=== PATIENT | female | born 1955 | race Caucasian/White ===

== ENCOUNTER 2017-06-20 22:35 | Inpatient (IN) | payer BC ==
--- OUTSIDE RECORDS SUMMARY | 2017-06-20 22:38 | XMS | Clinical Summary ---
:1955 Author Organization [facility] Address [address] [place] [phone] Phone Care Team Providers Name Role Phone , Primary Care Provider Unavailable Allergies No Known Allergies Current Medications Prescription Sig. Disp. Refills Start Date End Date Status lisinopril Take 20 mg by Active (PRINIVIL,ZESTRIL) 20 MG mouth daily. tablet diltiazem (CARDIZEM CD) Take 240 mg by Active 240 MG 24 hr capsule mouth daily. sertraline (ZOLOFT) 50 MG Take 50 mg by Active tablet mouth daily. simvastatin (ZOCOR) 40 MG Take 40 mg by Active tablet mouth nightly. digoxin (LANOXIN) 0.125 MG Take 125 mcg by Active tablet mouth daily. pantoprazole (PROTONIX) 40 Take 40 mg by Active MG tablet mouth 2 (two) times daily. dabigatran (PRADAXA) 150 Take by mouth 2 Active mg Cap capsule (two) times daily. aspirin 81 MG EC tablet Take 81 mg by Active mouth daily. CALCIUM CARBONATE/VITAMIN Take by mouth 3 Active D3 (CALCIUM 500 + D ORAL) (three) times daily. Active Problems Not on file Social History Tobacco Use Types Packs/Day Years Used Date Former Smoker Smokeless Tobacco: Never Used Comments:QUIT 25 YEARS AGO Alcohol Use Drinks/Week oz/Week Comments No Sex Assigned at Date Recorded Not on file Last Filed Vital Signs Vital Sign Reading Time Taken Blood Pressure 101/52 02/12/2015 3:15 PM CDT Pulse 53 02/12/2015 3:15 PM CDT Temperature 36.4 C (97.6 F) 02/12/2015 3:00 PM CDT Respiratory Rate 18 02/12/2015 3:15 PM CDT Oxygen Saturation 100% 02/12/2015 3:15 PM CDT Inhaled Oxygen Concentration - - Weight 106.7 kg (235 lb 3.7 oz) 02/12/2015 10:41 AM CDT Height 172.7 cm (5' 8") 02/11/2015 8:30 AM CDT Body Mass Index 35.77 02/12/2015 10:41 AM CDT Plan of Treatment Not on file Results Not on filefrom Last 3 Months
[2017-06-20 23:08] LABS: #Basophils 0.1 thou/uL (0.0-0.2); #Eosinphils 0.2 thou/uL (0.0-0.7); #Lymphocytes 2.9 thou/uL (1.20-3.40); #Monocytes 0.6 thou/uL (0.11-0.59); #Neutrophils 4.6 thou/uL (1.40-6.50); %Eosinophils 1.9 % (0.0-10.0); %Lymphocytes 34.3 % (21.0-51.0); %Monocytes 7.7 % (0.0-10.0); Hematocrit 44.9 % (36.0-47.0); Mean Platelet Volume 7.6 fL (7.4-10.4); White Blood Cell (WBC) Count 8.3 thou/uL (4.8-10.8)
[2017-06-20 23:27] LABS: ALT (SGPT) 24 U/L (8-55); AST (SGOT) 30 U/L (5-34); Alkaline Phosphatase 123 U/L (40-150); Anion Gap 17 mmol/L (10-20); BUN (Urea Nitrogen) 23 mg/dL (9.8-20.1); Bilirubin, Total 0.3 mg/dL (0.2-1.2); Calc. Creatinine Clearance 0 mL/min (70-130); Calcium 9.6 mg/dL (7.8-10.44); Carbon Dioxide 23 mmol/L (22-29); Chloride 106 mmol/L (98-107); Estimated GFR-MDRD 67; Globulin 4.5 g/dL (2.4-3.5); Magnesium 2.5 mg/dL (1.6-2.6); Protein, Total 8.9 g/dL (6.0-8.3)
[2017-06-20 23:31] LABS: Troponin I Less than 0.010 ng/mL (< 0.028)
--- NOTE | 2017-06-21 00:01 | RAD ---
PORTABLE UPRIGHT CHEST ONE VIEW: 06/20/17 HISTORY: 61-year-old female with shakiness and heart racing since 8:30 tonight. Chest pain. Heart size is upper range of motion. Bronchovascular markings are slightly prominent. Postop midline sternotomy. Left ICD. No confluent pneumonia, overt edema, or pleural effusion. Stable from 11/18/16. IMPRESSION: Borderline heart size and increased bronchovascular markings, stable. No pneumonia, acute edema or o ther acute process. Stable from prior study. POS: TIESHA
[2017-06-21] MEDS ORDERED: Amiodarone HCl 450 MG, Admixture Fee 1 EACH in Dextrose 5% in Water 250 ML IVPB SCH ×3 (00:30)
[2017-06-21 02:07] VITALS: BMI 44.9
[2017-06-21] MEDS ORDERED: Acetaminophen 325 MG TAB PO PRN (04:15)
[2017-06-21] MEDS ORDERED: Digoxin 0.5 MG/2 ML AMP SLOW IVP SCH (04:15)
[2017-06-21] MEDS ORDERED: Melatonin 3 MG TAB PO PRN (04:45)
[2017-06-21] MEDS: Sodium Chloride 0.9% 1,000 ML IV SCH (05:15)
--- NOTE | 2017-06-21 05:39 | HP ---
REASON FOR ADMISSION: Atrial fibrillation with RVR. HISTORY OF PRESENT ILLNESS: The patient gives history of sitting in a chair watching TV yesterday evening when she started to have palpitations. 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 Her rate was around 120-130 at home. The patient finally made it to the emergency room. She has had prior history of atrial fibrillation with RVR and had ablation done. The patient also has a pacemaker. She was taken off amiodarone at the end of May by her drying machine tender. She was also off digoxin 6 months prior to that. The patient was having paced rhythm all through and was only having paroxysmal atrial fibrillation, hence the digoxin and amiodarone were taken off per patient. PAST MEDICAL AND SURGICAL HISTORY: History of chronic atrial fibrillation, dyslipidemia, hypertension, obesity, coronary artery disease, history of gastric sleeve done in 2012 with nearly 90-pound weight loss and subsequently has gained some back, pacemaker for history of Drtqc-Gqphmotta-Cwryi syndrome, history of asthma, prior history of gallstone pancreatitis with cholecystectomy , hematuria, anxiety, depression, chronic anemia, gastroesophageal reflux disease, left knee arthroscopic repair, right breast biopsy which has come back for benign, history of ERCP done in [place]. CURRENT MEDICATIONS: Pradaxa 150 mg p.o. twice daily, simvastatin 40 mg p.o. at bedtime, aspirin 81 mg p.o. daily, iron 325 mg p.o. daily, Cardizem-CD 240 mg p.o. daily, Claritin 10 mg p.o. daily. ALLERGIES: No known drug allergies. PERSONAL HISTORY: Does not abuse alcohol or drugs. No history of smoking. FAMILY HISTORY: Mother is healthy and is 83 years old now. Father at the age of 84 years. He has had history of CVA and dementia. Power of real estate attorney is her . CODE STATUS: Full: REVIEW OF SYSTEMS: The following complete review of systems was negative, unless otherwise mentioned in the HPI or below: Constitutional: Weight loss or gain, ability to conduct usual activities. Skin: Rash, itching. Eyes: Double vision, pain. ENT/Mouth: Nose bleeding, neck stiffness, pain, tenderness. Cardiovascular: Palpitations, dyspnea on exertion, orthopnea. Respiratory: Shortness of breath, wheezing, cough, hemoptysis, fever or night sweats. Gastrointestinal: Poor appetite, abdominal pain, heartburn, nausea, vomiting, constipation, or diarrhea. Genitourinary: Urgency, frequency, dysuria, nocturia. Musculoskeletal: Pain, swelling. Neurologic/Psychiatric: Anxiety, depression. Allergy/Immunologic: Skin rash, bleeding tendency. PHYSICAL EXAMINATION: GENERAL: The patient is a 61-year-old female who is currently not in any acute distress. VITAL SIGNS: Blood pressure 130/66, pulse 120 per minute, respiratory rate is 18 per minute, temperature 97.8 degrees Fahrenheit, saturating 93% on room air. NECK: Supple, no elevated JVD. HEENT: Eyes; extraocular muscles intact. Pupils reacting to light. Oral cavity, mucous membranes are moist. No exudates or congestion. CARDIOVASCULAR: S1, S2 heard. Irregular rhythm. RESPIRATORY: Air entry 1+ bilateral. Scattered rhonchi plus no rales or wheezes. ABDOMEN: Soft, bowel sounds heard. No tenderness, rigidity or guarding. EXTREMITIES: No peripheral edema or calf tenderness. VASCULAR SYSTEM: Peripheral pulses 1+ bilateral. No ischemic ulcerations or gangrene. CENTRAL NERVOUS SYSTEM: No gross focal deficits seen. Patient is alert, awake , oriented x3. PSYCHIATRIC: The patient's mood is euthymic. No hallucinations or delusions. LABORATORY AND X-RAY FINDINGS: White count of 8, H\T\H 14 and 44, platelet count 209 with 55% neutrophils. Electrolytes are stable. BUN 23, creatinine 0.8. Liver enzymes are within normal limits. First set of cardiac enzymes are negative. Albumin is 4.4. Chest x-ray done shows mild cardiomegaly, no acute infiltrate. EKG done shows atrial fibrillation with RVR at 130 beats per minute. There are Q-waves seen in V1, V2, V3. CLINICAL IMPRESSION AND PLAN: The patient will be admitted to telemetry for atrial fibrillation with rapid ventricular response. The ER physician spoke to Dr. Worthy overnight and was told to start her on amiodarone drip after a bolus. She is currently on a drip. Her heart rate is still around 120 per minute. We will give a dose of 0.5 mg digoxin one dose IV. Cardiology consultation and Electrophysiology consultation will also be requested. We will continue her on aspirin, Pradaxa, Cardizem-CD as before. We will also continue her ferrous sulfate, melatonin and Zoloft as before. She will be on normal saline at 50 mL per hour. We will obtain an echo with 2D Doppler to rule out vegetation. We will keep her n.p.o. with the patient likely requiring ablation or cardioversion if she continues with the current heart rate. PETERD
[2017-06-21 05:46] LABS: Troponin I 0.013 ng/mL (< 0.028)
[2017-06-21] MEDS ORDERED: FLU VACC QS2017-18 36 mo. & older 0.5 ML SYRINGE IM ONE ×2 (09:00→10:00)
[2017-06-21] MEDS: Dabigatran 150 mg Capsule PO SCH ×2 (09:14→20:44)
[2017-06-21] MEDS: Ferrous Gluconate 324 MG TAB PO SCH (09:14)
--- NOTE | 2017-06-21 13:58 | CON ---
DATE OF CONSULTATION: 06/21/2017 HISTORY: Keri Andrade is a 61-year-old white female who is admitted with atrial fibrillation. She has a long history of cardiac arrhythmias. In 1989, she underwent an open chest procedure for ablation of Jjejd-Pqxxpsntp-Vrmwr when percutaneous attempt failed. She has had atrial fibrillation as well as a permanent pacemaker placement. She has undergone 2 atrial fibrillation ablations. In 12/2016, she underwent electrocardioversion for atrial fibrillation, which had recurred after the second ablation. She has continued to remain out of atrial fibrillation. Approximately 2 weeks ago, her amiodarone was discontinued. Then, last night at 8:30 p.m., she felt her heart beating very rapidly and came to the emergency room and was found to be in atrial fibrillation. She was given a bolus followed by intravenous amiodarone. She continued to remain in atrial fibrillation; however, her rate is now in the 90s. With this, she denies any chest discomfort, shortness of breath, lightheadedness, dizziness or diaphoresis. PAST MEDICAL HISTORY: History of coronary artery disease with PTCA of totally occluded right posterior descending in 05/2004. Since then, she has undergone repeat catheterization last of which was in 01/2011. She was found to have diffuse distal LAD disease. Apparently, her right coronary artery looked normal at that time. History of Cljcy-Gtkulrlku-Qzwwv, morbid obesity, atrial fibrillation, hyperlipidemia, hypertension, history of gallstone pancreatitis, anxiety and GERD. OPERATIONS: Include open Ydjji-Adgwmjejm-Kgfmq ablation, atrial fibrillation ablation x2, pacemaker placement, cholecystectomy, left knee arthroscopy, gastric sleeve surgery with weight loss of 90-100 pounds, breast biopsy, and ERCP. MEDICATIONS: Zoloft 100 daily, Claritin 10 daily, melatonin 5 mg at bedtime, Fergon 324 daily, aspirin 81 daily, Pradaxa 150 mg b.i.d., Cartia 240 mg daily, Lasix 40 daily p.r.n., nitroglycerin 0.4 p.r.n., simvastatin 40 at bedtime and Protonix 40 q.a.m. ALLERGIES: None. SOCIAL HISTORY: She smoked in the past, but not recently. She does not drink. She works for [employer] as a nurse. FAMILY HISTORY: Father had coronary artery disease. REVIEW OF SYSTEMS: Ten point review of systems otherwise unremarkable. PHYSICAL EXAMINATION: VITAL SIGNS: Blood pressure 113/58, pulse of 75 irregularly irregular. HEENT: PERRL. NECK: Supple. CHEST: Clear. CARDIAC: S1 and S2 are normal, without any S3, S4 or murmurs. ABDOMEN: Obese, normal bowel sounds, no tenderness. EXTREMITIES: Revealed no clubbing, cyanosis or edema. NEUROLOGIC: Grossly intact. SKIN: Warm and dry. IMAGING AND LABORATORY DATA: EKG reveals atrial fibrillation with fast ventricular response of 130 per minute. There is downsloping of ST segments in I, aVL and V6. CBC is unremarkable. Sodium 142, potassium 4.3, chloride 106, carbon dioxide 23, BUN 23, creatinine 0.86. Cardiac enzymes are unremarkable. IMPRESSION: 1. Persistent atrial fibrillation with recurrence approximately 2 weeks after stopping the amiodarone. She has undergone radiofrequency ablation x2 for atrial fibrillation and also underwent electrical cardioversion in March,. 2. History of Tctzr-Xdaznbpwz-Dsqdp with open ablation in 1989. 3. Coronary artery disease, status post percutaneous transluminal coronary angioplasty of the right posterior descending. Most recent catheterization showed distal left anterior descending diffuse disease. 4. Status post pacemaker placement. 5. Hypertension. 6. Hypercholesterolemia. 7. Morbid obesity, status post gastric sleeve. RECOMMENDATIONS: [employer] has been contacted in regards to interrogating her pacemaker. The main options would be to reload her with amiodarone, undergo repeat electrocardioversion, consider another agent such as Multaq, which does not have the bad long-term side effects and then cardioversion or consideration of a third atrial fibrillation ablation. The patient will be seen by Electrophysiology for further discussion. PRASANNA
[2017-06-21] MEDS ORDERED: Amiodarone HCl 450 MG, Admixture Fee 1 EACH in Dextrose 5% in Water 250 ML IVPB PRN ×3 (15:45)
--- NOTE | 2017-06-21 15:55 | PDOC.PN ---
- Subjective Encounter Start Date: 06/21/17 Encounter Start Time: 15:50 Subjective: f/u for recurrent A-fib with RVR on Amiodarone gtt and evaluated by EP -: for CV but cancelled with plans on ablation in am. - Objective Resuscitation Status: Resuscitation Status FULL:Full Resuscitation MAR Reviewed: Yes Vital Signs & Weight: Vital Signs (12 hours) Temp Pulse Resp BP BP Pulse Ox 06/21/17 12:08 98.2 F 71 16 106/59 L 95 06/21/17 09:14 75 113/58 L 06/21/17 08:43 97.7 F 75 16 113/58 L 95 06/21/17 05:16 117 H 06/21/17 04:15 98.1 F 118 H 18 113/52 L 92 L Weight Weight 295 lb 3.2 oz I&O: 06/20/17 06/21/17 06/22/17 06:59 06:59 06:59 Intake Total 355 Balance 355 Result Diagrams: 06/20/17 22:52 06/20/17 22:52 Additional Labs: Laboratory Tests 06/20/17 06/20/17 06/21/17 22:52 22:52 02:00 Troponin I Less than 0.010 0.010 B-Natriuretic Peptide 51.8 06/21/17 04:17 Troponin I 0.013 B-Natriuretic Peptide EKG Reviewed by me: Yes (Tele - A-fib with intermittent pacing in 70's) Phys Exam - Physical Examination Constitutional: NAD HEENT: PERRLA, oral pharynx no lesions Neck: no JVD, supple Respiratory: no wheezing, clear to auscultation bilateral Cardiovascular: irregular Gastrointestinal: soft, non-tender, no distention, positive bowel sounds Musculoskeletal: pulses present Neurological: normal sensation, moves all 4 limbs Psychiatric: A&O x 3 Skin: normal turgor, cap refill <2 seconds Dx/Plan (1) Persistent atrial fibrillation with rapid ventricular response Code(s): I48.1 - PERSISTENT ATRIAL FIBRILLATION Status: Acute Comment: Plan for 3rd ablation 06/22, continue Pradaxa, off Amiodarone gtt, continue Cardizem 240mg daily (2) Heart palpitations Code(s): R00.2 - PALPITATIONS Status: Acute (3) CAD (coronary artery disease) Code(s): I25.10 - ATHSCL HEART DISEASE OF [place] CORONARY ARTERY W/O ANG PCTRS Status: Chronic Comment: Stable, continue ASA and Lipitor (4) Zzoqa-Bzngnbugd-Fnfjy (WPW) pattern Code(s): I45.6 - PRE-EXCITATION SYNDROME Status: Resolved Comment: Hx of prior WPW tx with open ablation (5) HLD (hyperlipidemia) Code(s): E78.5 - HYPERLIPIDEMIA, UNSPECIFIED Status: Chronic Comment: Continue Lipitor - Plan plan discussed w/ family, out of bed/ambulate, DVT proph w/SCDs Stable currently -: Continue rate-control measures with Cardizem -: Plan for repeat ablation in am -: Continue Pradaxa -: Continue ASA and Lipitor * 2D echo pending * AM lab: BMP, CBC
[2017-06-21] MEDS ORDERED: ISOVUE-370 76%-LOCM 1 ML ONE (16:28)
--- NOTE | 2017-06-21 17:31 | CT ---
CT PULMONARY ANGIOGRAM WITH IV CONTRAST AND 3D POSTPROCESSING: Date: 06/21/17 HISTORY: Patient is scheduled to have an ablation tomorrow. FINDINGS: The pulmonary arterial vasculature is well opacified without filling defects to suggest pulmonary em bolism. The thoracic aorta demonstrates no evidence of aneurysmal dilatation. No pleural or pericard ial effusions are seen. No pneumothoraces, focal areas of consolidation, or lung masses are identifi ed. There is a 5.0 mm nodule in the lingula. There are degenerative changes in the spine. There are postop changes of bariatric surgery and cholecystectomy in the upper abdomen. There is a 14.0 mm rig ht adrenal nodule with attenuation values consistent with a benign adenoma. IMPRESSION: 1. No CT evidence of pulmonary embolism. 2. Indeterminate 5.0 mm left lung nodule in the lingula. A 6 month follow-up CT scan of the chest s hould be performed. 3. Right adrenal adenoma. CODE T. POS: OFF
[2017-06-21] MEDS: Ferrous Sulfate 325 MG TAB PO SCH (17:56)
[2017-06-21] MEDS ORDERED: Sodium Chloride 0.9% 0 ML ONE (19:47)
--- NOTE | 2017-06-21 20:29 | CON ---
DATE OF CONSULTATION: 06/21/2017 ELECTROPHYSIOLOGY CONSULTATION REPORT REFERRING PHYSICIAN: Dr. Kidd. I am seeing Mrs. Andrade at our [facility] telemetry floor as an electrophysiology consult ant for the following problems: 1. Recurrent atrial arrhythmias. A. History of remote WPW/accessory pathway ablation in the past. B. Persistent atrial fibrillation, prompting pulmonary venous isolation procedure, 01/29/2016, and a redo procedure, 12/12/2016. C. Transient amiodarone use, stopped a couple of weeks ago. D. Now with recurrent atypical atrial flutter which persists. 2. History of coronary artery disease. A. History of PTCA for total occluded right posterior descending artery in 05/2004. B. Last left heart catheterization in 01/2011 showed diffuse distal LAD disease, but patent RCA. C. Normal LVEF noted. 4. Coronary artery risk factors. A. Hypertension. B. Hyperlipidemia. C. Morbid obesity. 5. Chronic oral anticoagulation, on Pradaxa. 6. Sick sinus syndrome, prompting a pacemaker implantation with a [employer]tr[employer] Advisa device on 2014. A. Low amplitude P waves are noted. ALLERGIES: None. MEDICATIONS: At home include Zoloft 100 mg a day, Claritin 10 mg a day, melatonin 5 mg at bedtime, Fergon daily, aspirin 81 mg daily, Pradaxa 150 mg twice a day, Cartia 240 mg daily, Lasix 40 mg p.r. n., nitroglycerin 0.4 mg, simvastatin 40 mg at bedtime, Protonix 40 mg in the morning. SUBJECTIVE: Mrs. Andrade is here with symptoms of recurrent palpitations. She started feeling thi s about at 8:30 p.m., heavy heart beating, and eventually came to the ER and found to be back in atr ial fibrillation. She was given IV amiodarone and heart rates are improved, but continues in atrial fibrillation. She has no stroke-like symptoms, no neurological deficits, no fever, chills, or coug h. No PND or orthopnea noted. She denies any stroke-like symptoms or bleeding issues. She has no angina. REVIEW OF SYSTEMS: Rest of 12-point review of systems otherwise unremarkable. PAST MEDICAL HISTORY: As above. PAST SURGICAL HISTORY: Significant for open heart/chest procedure for ablation of the Radha-Jefry on-White tachycardia. Also, pacemaker placement as above. SOCIAL HISTORY: She smoked in the past, but not recently. She denies ETOH or drug use. FAMILY HISTORY: Not contributory, but father had coronary artery disease. OBJECTIVE DATA: VITAL SIGNS: Blood pressure this morning is 113/58, heart rate 75, respirations 16, temperature 97. 7 degrees Fahrenheit. GENERAL: She is alert and oriented woman in no apparent distress. NECK: Supple. Jugular veins are not distended. CHEST: Coarse without crackles. CARDIAC: Heart sounds are irregularly irregular. S1 and S2 variable. No murmur or gallop noted. ABDOMEN: Benign. Bowel sounds positive. EXTREMITIES: Lower extremities without edema, clubbing, or cyanosis. DATABASE: The EKGs reviewed reveals a very irregular tachyarrhythmia, likely atypical atrial flutte r with 2:1 conduction is noted. Subsequent EKGs, telemetry strips reveal intermittent wide complex conduction, possibly ventricular pacing is seen. LABORATORY DATA: White count is 8.3, hemoglobin 14.3, platelet count is 209. Sodium 142, potassium 4.3, BUN 23, creatinine 0.86, AST and ALT 30 and 24. Pacemaker interrogation was reviewed from today, reveals Medtronic Advisa DR dual chamber pacemaker battery longevity will be about 4-6 years estimated. Lead impedances are normal at 418 ohms in both leads, sensing 1.3 millivolts in right atrium and 4.4 millivolts in the right ventricle. Capture t hresholds are 1 volt at 0.4 msec in the right ventricle, not checked due to atrial fibrillation in t he right atrium. The atrial fibrillation charts reveal persisting atrial fibrillation before February, but mostly sinus rhythm subsequent to that with intermittent recurrences, but currently there is an episode ongoing as well. ASSESSMENT AND PLAN: Mrs. Andrade is a 61-year-old woman, who has a history of Prlga-Yhiydvyfi-Sqg te syndrome, which was ablated with an open heart surgery as per history. She did have two endocard ial ablations for pulmonary venous isolation and left atrial ablation, most recently on 12/12/2016. She was maintaining sinus rhythm on amiodarone, but it was discontinued due to lack of recurrent ar rhythmias and in fear of potential long-term side effects. Now, she is back in atrial fibrillation/ flutter and she has required IV amiodarone loading. Her rates are now better controlled. Our plan is at this point, for now, we discussed treatment and options. Continuing IV amiodarone wi th cardioversion is one of the options. Alternatively, we could consider redo pulmonary venous isol ation procedure and left atrial ablation procedure. Risks and benefits of both were discussed. We will proceed with the left atrial ablation procedure at her wishes. For now, we will cancel the car dioversion. I will stop the IV amiodarone, which will be restarted if necessary for heart rate cont rol. We are holding the Pradaxa tomorrow morning, but we will continue to monitor her for rate cont rol on telemetry. CT scan will be obtained of the left atrium. Thank you again for allowing me to participate in the care of this patient.
[2017-06-21] MEDS: Atorvastatin Calcium 20 MG TAB PO SCH (20:45)
[2017-06-22] MEDS: Sodium Chloride 0.9% 1,000 ML IV SCH ×2 (02:10→20:24)
[2017-06-22 05:39] LABS: #Eosinphils 0.1 thou/uL (0.0-0.7); #Monocytes 0.5 thou/uL (0.11-0.59); #Neutrophils 2.3 thou/uL (1.40-6.50); %Basophils 0.9 % (0.0-1.0); %Eosinophils 2.9 % (0.0-10.0); %Lymphocytes 39.5 % (21.0-51.0); %Monocytes 9.6 % (0.0-10.0); Hematocrit 41.6 % (36.0-47.0); Mean Platelet Volume 7.5 fL (7.4-10.4); Red Blood Cell (RBC) Count 4.29 mill/uL (4.20-5.40)
[2017-06-22 05:53] LABS: Anion Gap 10 mmol/L (10-20); BUN (Urea Nitrogen) 12 mg/dL (9.8-20.1); Calc. Creatinine Clearance 141 mL/min (70-130); Calcium 9.5 mg/dL (7.8-10.44); Carbon Dioxide 29 mmol/L (22-29); Chloride 106 mmol/L (98-107); Estimated GFR-MDRD 64
[2017-06-22] MEDS: Ferrous Gluconate 324 MG TAB PO SCH (08:03)
--- NOTE | 2017-06-22 11:51 | PDOC.PN ---
- Subjective Encounter Start Date: 06/22/17 Encounter Start Time: 08:00 Pt seen for followup re: atrial fibrillation. Denies chest pain, shortness of breath, fevers or chills. - Objective Resuscitation Status: Resuscitation Status FULL:Full Resuscitation Vital Signs & Weight: Vital Signs (12 hours) Temp Pulse Resp BP Pulse Ox 06/22/17 11:18 97.6 F 86 16 116/60 97 06/22/17 08:03 97.6 F 73 16 96 06/22/17 08:00 97.6 F 73 16 109/78 96 06/22/17 04:00 97.5 F L 75 20 119/60 96 06/22/17 00:00 97.9 F 72 18 106/66 92 L Weight Weight 296 lb 9.6 oz I&O: 06/21/17 06/22/17 06/23/17 06:59 06:59 06:59 Intake Total 355 1341 Output Total 1150 Balance 355 191 Result Diagrams: 06/22/17 05:27 06/22/17 05:27 Phys Exam - Physical Examination Morbid obesity HEENT: moist MMs, oral pharynx no lesions Neck: supple Respiratory: no wheezing, no rales, no rhonchi, clear to auscultation bilateral Cardiovascular: RRR, no rub Gastrointestinal: soft, positive bowel sounds Musculoskeletal: pulses present Neurological: moves all 4 limbs Psychiatric: normal affect, A&O x 3 Skin: no rash, normal turgor, cap refill <2 seconds Dx/Plan (1) Atrial fibrillation Code(s): I48.91 - UNSPECIFIED ATRIAL FIBRILLATION Status: Acute (2) CAD (coronary artery disease) Code(s): I25.10 - ATHSCL HEART DISEASE OF [place] CORONARY ARTERY W/O ANG PCTRS Status: Chronic (3) HLD (hyperlipidemia) Code(s): E78.5 - HYPERLIPIDEMIA, UNSPECIFIED Status: Chronic (4) Morbid (severe) obesity due to excess calories Code(s): E66.01 - MORBID (SEVERE) OBESITY DUE TO EXCESS CALORIES Status: Chronic - Plan * . Continue statin, amiodarone. Pt awaiting ablation. Review of Systems - Review of Systems Constitutional: Other. negative: Fever, Chills, Sweats, Weakness, Malaise Respiratory: negative: Cough, Dry, Shortness of Breath, Hemoptysis, SOB with Excertion, Pleuritic Pain, Sputum, Wheezing Cardiovascular: negative: Chest Pain, Palpitations, Orthopnea, Paroxysmal Noc. Dyspnea, Edema, Light Headedness Gastrointestinal: Other. negative: Nausea, Vomiting, Abdominal Pain, Diarrhea, Constipation, Melena, Hematochezia Genitourinary: negative: Dysuria, Frequency, Incontinence, Hematuria, Retention - Medications/Allergies Allergies/Adverse Reactions: Allergies Allergy/AdvReac Type Severity Reaction Status Date / Time No Known Allergies Allergy Verified 06/21/17 02:24 Medications: Current Medications Acetaminophen (Tylenol) 650 mg PO Q4H PRN PRN Reason: Headache/Fever or Pain Aspirin (Aspirin Chewable) 81 mg PO DAILY [facility] Last Admin: 06/22/17 08:03 Dose: 81 mg Atorvastatin Calcium (Lipitor) 20 mg PO HS [facility] Last Admin: 06/21/17 20:45 Dose: 20 mg Diltiazem HCl (Cardizem Cd) 240 mg PO DAILY [facility] Last Admin: 06/22/17 08:03 Dose: 240 mg Ferrous Gluconate (Fergon) 324 mg PO QAM-[facility] Last Admin: 06/22/17 08:03 Dose: Not Given Ferrous Sulfate (Feosol) 325 mg PO QPM-[facility] Last Admin: 06/21/17 17:56 Dose: 325 mg Sodium Chloride (Normal Saline 0.9%) 1,000 mls @ 50 mls/hr IV .Q20H [facility] Last Admin: 06/22/17 02:10 Dose: Not Given Amiodarone HCl 450 mg/Miscellaneous Medication 1 each/ Dextrose/Water 259 mls @ 0 mls/hr IVPB INF PRN; Protocol; As Directed PRN Reason: HR >120 Melatonin (Melatonin) 6 mg PO HS PRN PRN Reason: Insomnia Pantoprazole Sodium (Protonix) 40 mg PO QAM [facility] Last Admin: 06/22/17 08:03 Dose: 40 mg Sertraline HCl (Zoloft) 100 mg PO DAILY [facility] Last Admin: 06/22/17 08:03 Dose: 100 mg
[2017-06-22] MEDS ORDERED: Heparin 10,000 UNITS/1 ML VIAL ONE ×2 (13:16→15:10)
[2017-06-22] MEDS ORDERED: Phenylephrine 10 MG/NS 250 ML 250 ML ONE (13:18)
[2017-06-22] MEDS ORDERED: PHENYLEPHRINE-NS 100 MCG/ML 10 ML SYRINGE ONE (13:35)
[2017-06-22] MEDS ORDERED: Propofol 200 MG/20 ML VIAL ONE (13:35)
[2017-06-22] MEDS ORDERED: Lidocaine 2% PF 10 ML AMP (For Epidural Use) ONE (13:35)
[2017-06-22] MEDS ORDERED: Isoproterenol 0.2 MG/1 ML AMP ONE ×2 (15:10)
[2017-06-22] MEDS ORDERED: Protamine Sulfate 50 MG/5 ML VIAL ONE (15:25)
[2017-06-22] MEDS ORDERED: Ondansetron HCl/PF 4 MG/2 ML Vial IVP PRN ×2 (17:19→19:06)
[2017-06-22] MEDS ORDERED: Promethazine HCl 25 MG/ML VIAL IM PRN (17:19)
[2017-06-22] MEDS ORDERED: Promethazine HCl 25 MG/ML VIAL SLOW IVP PRN (17:19)
[2017-06-22] MEDS: Ferrous Sulfate 325 MG TAB PO SCH (18:06)
[2017-06-22] MEDS ORDERED: Bisacodyl 10 MG SUPP PR PRN (19:06)
[2017-06-22] MEDS ORDERED: traMADol HCl 50 MG TAB PO PRN (19:06)
[2017-06-22] MEDS ORDERED: Silver Sulfadiazine 1% Cream 50 GM JAR TOP PRN (19:06)
[2017-06-22] MEDS ORDERED: Bisacodyl 5 MG TAB PO PRN (19:06)
[2017-06-22] MEDS ORDERED: diphenhydrAMINE HCl 25 MG CAP PO PRN (19:06)
[2017-06-22] MEDS ORDERED: Temazepam 15 MG CAP PO PRN (19:06)
[2017-06-22] MEDS ORDERED: Mag-Al 1200 mg/1200 mg/30 ML UDCUP PO PRN (19:06)
[2017-06-22] MEDS ORDERED: Nitroglycerin 0.4 MG TAB (25 Tab Bottle) SL PRN (19:06)
[2017-06-22] MEDS: Atorvastatin Calcium 20 MG TAB PO SCH (20:21)
[2017-06-22] MEDS: Acetaminophen 325 MG TAB PO PRN (20:21)
[2017-06-22] MEDS: Dabigatran 150 mg Capsule PO SCH (20:21)
--- NOTE | 2017-06-22 21:02 | PRG ---
ELECTROPHYSIOLOGY FOLLOWUP NOTE DATE OF SERVICE: 06/22/2017 REFERRING PHYSICIAN: River Kidd M.D. SUBJECTIVE: Ms. Andrade is doing well today. She continues to have minor palpitations, but feelin g reasonably well. OBJECTIVE: VITAL SIGNS: Blood pressure is 116/60, heart rate 86, respirations 16 and temperature 97.6 degrees Fahrenheit. GENERAL: This is an alert and oriented woman in no apparent distress with elevated BMI. NECK: Supple. Jugular veins not distended. CHEST: Coarse without crackles. CARDIOVASCULAR: Heart sounds are regular to rate and rhythm. No murmur or gallop. ABDOMEN: Benign. Bowel sounds are positive. EXTREMITIES: Lower extremities without edema, clubbing or cyanosis. LABORATORY DATA: White count is 5, hemoglobin 13.1 and platelet count 162. Sodium 141, potassium 4 .5, BUN 12 and creatinine 0.9. ASSESSMENT AND PLAN: 1. Ms. Andrade is a pleasant 61-year-old female with prior history of persistent atrial fibrillati on with repeat left atrial ablation procedures. She received the IV amiodarone for rate control, bu t still in atrial fibrillation. As we discussed yesterday, we plan to proceed with the left atrial ablation procedure. Risks and benefits were detailed to the patient again. She understands and alayna ling to proceed. We will perform it today. 2. Chronic pacemaker with suboptimal right atrial sensing parameters. Consider revision. 3. Anticoagulation. Pradaxa on hold today for the ablation procedure, resume at the later time.
--- NOTE | 2017-06-22 21:22 | OP ---
DATE OF PROCEDURE: 06/22/2017 PROCEDURES: 1. Comprehensive EP testing with and without left atrial pacing and recording. 2. Transseptal catheterization x2. 3. Intracardiac echocardiography. 4. 3D mapping and ablation of atrial fibrillation. CLINICAL INDICATION: Recurrent atrial arrhythmias despite previous ablation for atrial fibrillation . DAILY RELEASE AND DUPE PRINTER: Brett Marquez M.D. ASA CLASSIFICATION: 3. ANESTHESIA: General endotracheal anesthesia per Anesthesiology. ADDITIONAL CARDIAC MEDICATIONS: Isoproterenol 10 mcg per minute infusion. Total heparin given 17,0 00 units. Total protamine given 40 mg. ACUTE COMPLICATIONS: None apparent. TOTAL RADIOFREQUENCY TIME: 13.3 minutes. TOTAL FLUOROSCOPY TIME: Zero. METHODS: After informed consent was obtained, the patient was taken to the EP lab in the [facility]. Both groins were prepped and draped using ultrasound guidance. The right and left femoral vei ns were accessed and wires were inserted into the central venous system. These were used to place a n11 Bermudian and 8 Bermudian sheath in the left groin, and two 8 B[place]udian sheath in the right groin. All 8 B[place]udian sheaths were then replaced by long sheaths for catheter stability. An intracardiac echo pro be was placed in left groin, advanced up to the right atrium and the right ventricle for imaging. A 3D map was obtained to the right atrium and coronary sinus using a circular and ablation catheter. A CS catheter was then placed into the coronary sinus. The proximal end was along the delicia termi nalis. Transseptal catheterization was performed after heparinization. This involves 12,000 units of heparin followed by 3D map and ICE guidance to obtain transseptal catheterization twice. Once ac ross, a 3D map was obtained at the left atrium, all veins appeared to be isolated from the previous ablation. Posterior wall was not completely isolated and was re-isolated. The circular catheter wa s then placed into the left atrial appendage and the fastest activation was along the roof the left atrium. The lateral mitral isthmus appeared electrically silent from previous ablations. Ablation was then delivered along the roof of left atrium which completely isolated this area, terminated the arrhythmia and also rendered the appendage completely electrically silent. Of note all provocation s both from pacing and chemical standpoint failed to induce any significant arrhythmias. Catheter w as then withdrawn and removed. Based on echo, the right atrial pacemaker lead dislodged during the course of the procedure. The previous sensing parameters of the leads were very poor even prior to the procedure, so this did not change the overall plan to revise the lead at some point. Catheter w as then withdrawn. Sheaths were pulled and hemostasis was achieved with suture closure. RESULTS: 1. Baseline intervals, HV interval 65 milliseconds. The patient was in atrial fibrillation with th e most rapid atrial signals along the roof of left atrium. This was ablated as described in method section. 2. Ablation details, a total of 13.3 minutes were delivered with an open irrigation and Storybird ablation catheter. All lesions were in the left atrium. This did result in complete isolatio n of left atrial appendage. IMPRESSION: 1. Successful isolation of the roof the left atrium and appendage of left atrium which rendered the patient noninducible and terminated arrhythmias. 2. Evidence of a baseline poor right atrial lead position and parameters and incidental dislodgemen t of this lead during the course of the ablation of the left atrium. RECOMMENDATION: Proceed with right atrial lead reposition or replacement.
[2017-06-23] MEDS: Acetaminophen 325 MG TAB PO PRN (02:33)
[2017-06-23] MEDS: Ferrous Gluconate 324 MG TAB PO SCH (09:08)
[2017-06-23] MEDS: Dabigatran 150 mg Capsule PO SCH (09:09)
[2017-06-23] MEDS ORDERED: Cephalexin 250 MG CAP PO SCH ×2 (12:30→18:00)
--- NOTE | 2017-06-23 13:02 | DIS ---
DATE OF ADMISSION: 06/21/2017 DATE OF DISCHARGE: 06/23/2017 PRIMARY CARE PROVIDER: Minna López M.D. ADMITTING DIAGNOSES: 1. Persistent atrial fibrillation. 2. Intracardiac echocardiography, 3D mapping and ablation of atrial fibrillation on 06/22/2017. 3. Right atrial lead repositioning following ablation of the left atrium. CONDITION OF PATIENT AT THE TIME OF DISCHARGE: Stable. I assess Ms. Andrade on the day of dischar . She denies any chest pain or shortness of breath. PHYSICAL EXAMINATION: VITAL SIGNS: Stable. CARDIOVASCULAR: S1 and S2 are heard, regular. LUNGS: Clear to auscultation bilaterally. DISCHARGE MEDICATIONS: Keflex 500 mg 4 times a day for 1 week as prescribed by Electrophysiology Se rvice, Tylenol Extra Strength p.r.n., aspirin 81 mg daily, Pradaxa 150 mg 2 times a day, Cartia XT 2 40 mg daily, Fergon 324 mg daily, Lasix 40 mg as directed, Claritin 10 mg daily, melatonin 5 mg at b edtime as needed, nitroglycerin p.r.n., Protonix 40 mg daily, Zoloft 100 mg daily, Zocor 40 mg at be dtime, and silver sulfadiazine 50 grams 1 gram topically every 12 hours as needed. HOSPITAL COURSE: Ms. Andrade is a pleasant 61-year-old lady who was admitted to [facility] on 06/21/2017 for persistent atrial fibrillation, which continued after she was star jermaine on amiodarone drip. She was seen by Cardiology Service and by Electrophysiology Service. She h ad a CT angiogram of the chest on 06/21/2017, which did not reveal any CT evidence of pulmonary embo lism. She had an indeterminate 5 mm left lung nodule in the lingula. The radiologist recommended a 6-month followup CT scan of the chest. She also had a right adrenal adenoma. In terms of atrial fibrillation, she had ablation on 06/22/2017. This was followed by right atrial lead repositioning because of evidence of baseline poor right atrial lead position and parameter and incidentally dislodgement of that lead during the course of ablation of the left atrium. Ms. Andrade continued to do well clinically, and is being discharged home in a stable condition. In terms of laboratory investigations, on 06/22/2017, she had white count of 5000, hemoglobin 13.1, platelet count 162,000. Normal electrolytes and normal creatinine of 0.90. Many thanks for allowing me to participate in your patient's care. Please feel free to contact me w ith any questions or concerns. DISCHARGE DESTINATION: Home. TOTAL AMOUNT OF TIME SPENT COORDINATING THIS DISCHARGE: 33 minutes. CONSULTATIONS DURING THIS HOSPITALIZATION: Cardiology, Dr. Mattson and Electrophysiology, Dr. Solano .
[2017-06-23] MEDS: Sodium Chloride 0.9% 1,000 ML IV SCH (15:50)
[2017-06-23 17:23] VITALS: BP 110/50; TEMP 98
--- NOTE | 2017-06-23 17:55 | PRG ---
DATE OF SERVICE: 06/23/2017 SUBJECTIVE: Ms. Andrade seems to be doing well after her left atrial ablation and right atrial pac ing lead revision one day prior. OBJECTIVE DATA: VITAL SIGNS: Blood pressure is 109/55, heart rate 70, respirations 16, temperature 98.3 degrees Fah renheit. GENERAL: Alert and oriented woman in no apparent distress. NECK: Supple. Jugular veins not distended. CHEST: Coarse without crackles. Left precordial pacemaker site wound edges approximated without si gnificant hematoma. ABDOMEN: Benign, bowel sounds positive. EXTREMITIES: Lower extremities without edema, clubbing, or cyanosis. DATABASE: The telemetry strips reviewed revealing sinus rhythm, atrial paced rhythm. Interrogation of her pacemaker reveals a Medtronic Advisa dual-chamber pacemaker, battery voltage is 2.99 volts. Capture threshold 0.75 volts at 0.4 milliseconds in the atrium, 0.75 volts at 0.4 mill iseconds in the right ventricle, sensing is 1 millivolts in the right atrium and 2.4 millivolts in t he right ventricle, lead impedances are 361 and 399 ohms respectively. CONCLUSION: 1. functioning dual-chamber pacemaker one day post right atrial lead revision. 2. History of atypical atrial flutter, status post ablation, currently stable. 3. Chronic anticoagulation with Pradaxa, now resumed. PLAN: Discharge when primary team is ready, routine followup in our office for wound check in [address] [place] [id number].
--- NOTE | 2017-06-25 17:48 | EKG ---
Test Reason : Blood Pressure : / mmHG Vent. Rate : 070 BPM Atrial Rate : 056 BPM P-R Int : 000 ms QRS Dur : 156 ms QT Int : 460 ms P-R-T Axes : 000 -28 107 degrees QTc Int : 496 ms AV sequential or dual chamber electronic pacemaker When compared with ECG of 22-JUN-2017 20:03, (Unconfirmed) No significant change was found Confirmed by KURTIS COLLINS ([id number]) on 06/25/2017 5:48:23 PM Referred By: [facility] Confirmed By:KURTIS COLLINS
--- NOTE | 2017-06-25 17:51 | EKG ---
Test Reason : POST ABLATION Blood Pressure : / mmHG Vent. Rate : 070 BPM Atrial Rate : 069 BPM P-R Int : 000 ms QRS Dur : 160 ms QT Int : 464 ms P-R-T Axes : 000 -45 118 degrees QTc Int : 501 ms AV sequential or dual chamber electronic pacemaker When compared with ECG of 20-JUN-2017 22:46, (Unconfirmed) Previous ECG has undetermined rhythm, needs review Confirmed by KURTIS COLLINS ([id number]) on 06/25/2017 5:51:21 PM Referred By: JAKE Confirmed By:KURTIS COLLINS
== END 2017-06-23 17:23 | disposition home or self-care (01) | DRG 274 ==
LOC: ERS 22:35 → 2NO 06-21 00:11
PROVIDERS: ADMIT Internal Medicine; ATTEND Internal Medicine
PROC: 02583ZZ Destruction of Conduction Mechanism, Percutaneous Approach (ICD-10-PCS; principal; 2017-06-22)
PROC: 02K83ZZ Map Conduction Mechanism, Percutaneous Approach (ICD-10-PCS; 2017-06-22)
PROC: 02PA3MZ Removal of Cardiac Lead from Heart, Percutaneous Approach (ICD-10-PCS; 2017-06-22)
PROC: 02H63JZ Insertion of Pacemaker Lead into Right Atrium, Percutaneous Approach (ICD-10-PCS; 2017-06-22)
DX: I48.1 Persistent atrial fibrillation (principal); I49.5 Sick sinus syndrome; T82.128A Displacement of other cardiac electronic device, initial encounter; Z68.42 Body mass index [BMI] 45.0-49.9, adult; I10 Essential (primary) hypertension; Z79.01 Long term (current) use of anticoagulants; D64.9 Anemia, unspecified; R91.1 Solitary pulmonary nodule; D35.01 Benign neoplasm of right adrenal gland; Z95.0 Presence of cardiac pacemaker; Z90.3 Acquired absence of stomach [part of]; Z90.49 Acquired absence of other specified parts of digestive tract; Z95.5 Presence of coronary angioplasty implant and graft; E78.5 Hyperlipidemia, unspecified; E66.01 Morbid (severe) obesity due to excess calories; Z87.891 Personal history of nicotine dependence; I25.2 Old myocardial infarction; I25.10 Atherosclerotic heart disease of native coronary artery without angina pectoris
CPT/HCPCS: 33206; 36005; 36415; 71010; 71275; 75820; 76942; 80048; 80053; 82553; 83735; 83880; 84484; 85025; 85347; 93005; 93010; 93306; 93613; 93623; 93656; 93662; 96365; 96375; 96376; A4216; C1731; C1732; C1759; C1769; C1898; J0282; J1160; J1644; J2001; J2704; J2720; J3490; J7070

== ENCOUNTER 2017-07-24 07:56 | Day surgery (SDC) | payer BC ==
[2017-07-21 08:50] VITALS: BMI 45.6
--- OUTSIDE RECORDS SUMMARY | 2017-07-24 07:59 | XMS | Clinical Summary ---
:1955 Author Organization [facility] Address [address] [place] [id number] Phone Care Team Providers Name Role Phone [...]
[2017-07-24] MEDS ORDERED: CEFAZOLIN/Water 2 GM/20 ML SYRINGE ONE (09:43)
[2017-07-24 09:46] LABS: PTT 23.9 SEC (22.9-36.1)
[2017-07-24 09:50] LABS: Prothrombin Time 13.5 SEC (12.0-14.7)
[2017-07-24] MEDS ORDERED: Propofol 500 MG/50 ML VIAL ONE ×3 (10:13→11:00)
[2017-07-24] MEDS ORDERED: Propofol 200 MG/20 ML VIAL ONE (10:18)
--- NOTE | 2017-07-24 16:00 | RAD ---
ONE VIEW CHEST: Comparison: 06-20-17 History: Evaluate lead position. FINDINGS: Single view chest demonstrates a left sided transvenous pacemaker with lead positioned in the region of the right atrium and possibly coronary sinus. Two view chest radiograph would be beneficial. Sternotomy wires are normal. Normal cardiac silhouette. The pulmonary vessels are slightly prominent. No consolidation or mass. No pneumothorax or osseous abnormality. IMPRESSION: 1. Left sided transvenous pacemaker with leads positioned possibly over the region of the right atriu m and coronary sinus. Correlate clinically. Two view chest radiograph is recommended. 2. Cardiomegaly. 3. Mild pulmonary vascular prominence. Code T POS: [facility]
== END 2017-07-24 13:30 | disposition home or self-care (01) ==
LOC: CCL 07:56
PROVIDERS: ATTEND Internal Medicine Cardiovascular Disease
PROC: 02WA0MZ Revision of Cardiac Lead in Heart, Open Approach (ICD-10-PCS; principal; 2017-07-24)
DX: T82.120A Displacement of cardiac electrode, initial encounter (principal); I49.5 Sick sinus syndrome; E66.9 Obesity, unspecified; I10 Essential (primary) hypertension; I25.10 Atherosclerotic heart disease of native coronary artery without angina pectoris; E78.5 Hyperlipidemia, unspecified; I25.2 Old myocardial infarction; F32.9 Major depressive disorder, single episode, unspecified; Z68.42 Body mass index [BMI] 45.0-49.9, adult; Z79.01 Long term (current) use of anticoagulants; Z79.82 Long term (current) use of aspirin; Z79.899 Other long term (current) drug therapy; Z98.84 Bariatric surgery status; Z95.0 Presence of cardiac pacemaker; Z95.1 Presence of aortocoronary bypass graft; Z90.49 Acquired absence of other specified parts of digestive tract; Z98.890 Other specified postprocedural states; Z87.891 Personal history of nicotine dependence; Z86.79 Personal history of other diseases of the circulatory system
CPT/HCPCS: 33215; 36005; 71010; 75820; 85610; 85730; J2704; J3490

== ENCOUNTER 2017-08-17 11:15 | Day surgery (SDC) | payer BC ==
[2017-08-08 16:42] VITALS: BMI 45.6
[2017-08-17 12:56] LABS: #Basophils 0.1 thou/uL (0.0-0.2); #Eosinphils 0.2 thou/uL (0.0-0.7); #Lymphocytes 2.2 thou/uL (1.20-3.40); #Monocytes 0.6 thou/uL (0.11-0.59); %Eosinophils 2.8 % (0.0-10.0); %Lymphocytes 30.8 % (21.0-51.0); %Monocytes 8.3 % (0.0-10.0); Hematocrit 45.4 % (36.0-47.0); Mean Platelet Volume 7.2 fL (7.4-10.4); Red Blood Cell (RBC) Count 4.68 mill/uL (4.20-5.40)
[2017-08-17 13:12] LABS: PTT 30.3 SEC (22.9-36.1)
[2017-08-17 13:17] LABS: ALT (SGPT) 22 U/L (8-55); AST (SGOT) 24 U/L (5-34); Alkaline Phosphatase 101 U/L (40-150); Anion Gap 13 mmol/L (10-20); BUN (Urea Nitrogen) 23 mg/dL (9.8-20.1); Bilirubin, Total 0.9 mg/dL (0.2-1.2); Calc. Creatinine Clearance 131 mL/min (70-130); Calcium 9.9 mg/dL (7.8-10.44); Carbon Dioxide 32 mmol/L (22-29); Chloride 100 mmol/L (98-107); Estimated GFR-MDRD 58; Globulin 4.1 g/dL (2.4-3.5); Protein, Total 8.4 g/dL (6.0-8.3)
[2017-08-17] MEDS ORDERED: Diprivan 20 ML ONE (14:14)
[2017-08-17] MEDS ORDERED: Propofol 200 MG/20 ML VIAL ONE (15:49)
--- NOTE | 2017-08-18 06:29 | OP ---
DATE OF SERVICE: 08/17/2017 CARDIOVERSION REPORT REFERRING PHYSICIAN: Dr. Scott Espinoza. REASON FOR PROCEDURE: Mr. Andrade has recurrent atrial arrhythmias, redo ablation on 10/23/2016, al so the dual chamber pacemaker implantation in 06/2015, but the lead revision was necessary of the atr ial lead in 06/2017 and 07/2017. He is back on anticoagulation with Pradaxa without interruption. I also started on Multaq for attempted anabaptist of sinus rhythm. PROCEDURE: The patient received propofol per Anesthesia specialist. After adequate level of sedatio n achieved, a synchronized 100 joule shock converted the patient back for only 4 beat or so. Followi ng that, a repeat cardioversion was performed under sedation. A 200 joule shock which was unsuccessf ul, but eventually 300 joule shock again converted back him for only one beat and atrial flutter and fibrillation recurred. Pacemaker was interrogated, pre and post-procedure appears to be adequate function. Atrial sensing. CONCLUSION: Unsuccessful cardioversion. PLAN: Likely we will stop Multaq and continue rate control. Consider amiodarone at earlier time. R epeat cardioversion as well could be considered after adequate amiodarone level was achieved. Longer term re-ablation procedure also a consideration.
== END 2017-08-17 15:27 | disposition home or self-care (01) ==
LOC: CCL 11:15
PROVIDERS: ATTEND Internal Medicine Cardiovascular Disease
DX: I48.92 Unspecified atrial flutter (principal); I25.10 Atherosclerotic heart disease of native coronary artery without angina pectoris; I45.6 Pre-excitation syndrome; I10 Essential (primary) hypertension; E78.5 Hyperlipidemia, unspecified; E66.9 Obesity, unspecified; Z68.42 Body mass index [BMI] 45.0-49.9, adult; Z79.01 Long term (current) use of anticoagulants; Z79.82 Long term (current) use of aspirin; Z79.899 Other long term (current) drug therapy; Z95.0 Presence of cardiac pacemaker; Z98.890 Other specified postprocedural states
CPT/HCPCS: 36415; 80053; 85025; 85610; 85730; 92960; J2704

== ENCOUNTER 2017-11-01 15:53 | Outpatient (CLI) | payer BC | END 2017-11-01 15:54 | disposition home or self-care (01) | LOC: BICMAMMO 15:53 | PROVIDERS: ATTEND Internal Medicine | DX: Z12.31 Encounter for screening mammogram for malignant neoplasm of breast (principal); Z80.3 Family history of malignant neoplasm of breast | CPT/HCPCS: 77063; 77067 ==

== ENCOUNTER → 2018-04-09 | Day surgery (SDC) | payer BC ==
[2018-04-06 15:50] VITALS: BMI 50.1
[~2018-04-09] MED LIST: PROPOFOL 20 ML ONE; PROPOFOL 200 MG/20 ML VIAL ONE
--- NOTE | 2018-04-09 11:17 | CT ---
NONCONTRAST CT THORAX: DATE: 04/09/18. HISTORY: Followup cyst adjacent to diaphragm. Six-month followup evaluation. FINDINGS: A dual-lead left subclavian cardiac pacemaking device remains in place. Postsurgical changes related to median sternotomy are present. A left atrial appendage occlusion device is now noted in place. The heart remains enlarged. No pericardial effusion is appreciated. Minimal vascular calcifications are seen in the aortic arch. There is mention of a pulmonary nodule in the lingula on the prior study on 06/21/17. This area on ax ial imaging on today's exam appears much less nodular in appearance and on the prior coronal reformat jermaine images had a more linear appearance. This is probably related to an area of either atelectasis o r mild scarring. There is evidence of bibasilar atelectasis. Lungs are otherwise clear. Previously described right adrenal nodule is again present. Post-cholecystectomy changes are noted w ith a small amount of pneumobilia again seen in the left hepatic lobe. Postsurgical changes of the stomach are again present. IMPRESSION: 1. Previously described nodular density in the region of the lingula has a different appearance on t mari's examination and is most likely attributable to a focal area of scarring or atelectasis. [facility], one additional followup can be performed in 6 months for further evalu ation. No additional discrete pulmonary nodule or mass is seen. 2. Cardiomegaly with interval placement of a left atrial appendage occlusion device since the prior study. 3. Stable right adrenal adenoma. POS: [facility]
--- NOTE | 2018-04-10 09:28 | DIS ---
DATE OF PROCEDURE: 04/09/2018 INDICATION FOR PROCEDURE: This is a 62-year-old female with a history of ablation of atrial fibrilla tion, also a Watchman device placement. She was advised to undergo a transesophageal echocardiogram, this to determine whether or not the Watchman device is well seated in the left atrial appendage and to see if there were any leaks. She was taken to the recovery area short acting propofol, the transesophageal probe was easily passed down the distal esophagus. This did show unfortunately evid ence of a device leak. The device appears not to be well seated. There is actually what appears to be blood behind the device and it was very apex of the atrial appendage, but this does not appear to be clot. She tolerated the procedure well without any difficulties or complications. ADMITTING DIAGNOSES: Include history of atrial fibrillation, history of ablation of the atrial fibri llation, history of Watchman device placement. She also has a history of coronary disease and hypert ension. DISCHARGE DIAGNOSES: Include history of atrial fibrillation, history of ablation of the atrial fibri llation, history of Watchman device placement. She also has a history of coronary disease and hypert ension. PROCEDURE: Transesophageal echocardiogram. DISCHARGE MEDICATIONS: Will be same as her admission medications. These include Tylenol, ProAir, El iquis 5 mg b.i.d., aspirin 81 mg a day, vitamin D3, Cartia XT 240 mg daily, Lasix 40 mg daily, lorata dine 10 mg daily, melatonin 5 mg at bedtime, nitroglycerin p.r.n. as needed. Her followup will be with the travel trailer components assembler as per their schedule. Also, please note her other medicines include potassium, sertraline and Zocor 40 mg daily. She will follow up with me in the ne xt 1-2 months. HOSPITAL COURSE: This is a very pleasant 62-year-old female with history of coronary artery disease, atrial fibrillation who has undergone ablation of the atrial fibrillation, recently within the last 2 months had a Watchman device placed. She was advised to undergo a transesophageal echocardiogram f or placement of the device. This was performed today without difficulties or complications. Unfortu nately appears to have a leak around the device and also appears not to be well seated. I will defer this back to the Electrophysiology with the films and also report to see whether or not further inte rvention will be indicated. She tolerated the procedure well and once she is stable and alert, she w ill be able to be discharged home.
== END ==
LOC: CCL 07:39
PROVIDERS: ATTEND Internal Medicine Cardiovascular Disease
PROC: B24BZZ4 Ultrasonography of Heart with Aorta, Transesophageal (ICD-10-PCS; principal; 2018-04-09)
DX: I48.1 Persistent atrial fibrillation (principal); T82.538A Leakage of other cardiac and vascular devices and implants, initial encounter; I35.1 Nonrheumatic aortic (valve) insufficiency; I07.1 Rheumatic tricuspid insufficiency; I45.6 Pre-excitation syndrome; F32.9 Major depressive disorder, single episode, unspecified; E78.5 Hyperlipidemia, unspecified; I10 Essential (primary) hypertension; I25.10 Atherosclerotic heart disease of native coronary artery without angina pectoris; Z79.01 Long term (current) use of anticoagulants; Z79.899 Other long term (current) drug therapy; Z95.0 Presence of cardiac pacemaker; Z98.890 Other specified postprocedural states
CPT/HCPCS: 71250; 93312; J2704

== ENCOUNTER 2018-08-17 06:12 | Day surgery (SDC) | payer BC ==
[2018-08-16 11:55] VITALS: BMI 48.6
[2018-08-17 07:36] LABS: INR-International Normal Ratio 1.2; PTT 26.8 SEC (22.9-36.1); Prothrombin Time 15.1 SEC (12.0-14.7)
[2018-08-17 07:43] LABS: #Eosinphils 0.1 thou/uL (0.0-0.7); #Lymphocytes 1.2 thou/uL (1.20-3.40); #Monocytes 0.4 thou/uL (0.11-0.59); #Neutrophils 1.8 thou/uL (1.40-6.50); %Basophils 0.7 % (0.0-1.0); %Eosinophils 2.5 % (0.0-10.0); %Lymphocytes 34.1 % (21.0-51.0); %Neutrophils 50.7 % (42.0-75.0); Mean Corpuscular HGB CONC 32.3 g/dL (32.0-36.0); Mean Corpuscular Volume 89.7 fL (78.0-98.0); Mean Platelet Volume 7.7 fL (7.4-10.4); Platelet Count 183 thou/uL (130-400); RBC Distribution Width 13.7 % (11.5-14.5); Red Blood Cell (RBC) Count 4.13 mill/uL (4.20-5.40); White Blood Cell (WBC) Count 3.6 thou/uL (4.8-10.8)
[2018-08-17] MEDS ORDERED: Lidocaine 1% PF 5 ML VIAL ONE ×2 (07:45→11:00)
[2018-08-17] MEDS ORDERED: PROPOFOL 40 ML ONE (07:45)
[2018-08-17 07:51] LABS: Anion Gap 12 mmol/L (10-20); BUN (Urea Nitrogen) 22 mg/dL (9.8-20.1); Calc. Creatinine Clearance 174 mL/min (70-130); Calcium 9.6 mg/dL (7.8-10.44); Carbon Dioxide 30 mmol/L (23-31); Chloride 101 mmol/L (98-107); Estimated GFR-MDRD 75; Glucose 91 mg/dL (80-115); Potassium 3.8 mmol/L (3.5-5.1); Sodium 139 mmol/L (136-145)
[2018-08-17] MEDS ORDERED: PROPOFOL 200 MG/20 ML VIAL ONE (11:00)
--- NOTE | 2018-08-17 22:41 | EKG ---
Test Reason : PREOP YAMEL Blood Pressure : / mmHG Vent. Rate : 070 BPM Atrial Rate : 300 BPM P-R Int : 000 ms QRS Dur : 112 ms QT Int : 446 ms P-R-T Axes : 000 008 103 degrees QTc Int : 481 ms Electronic atrial pacemaker Abnormal ECG When compared with ECG of 23-JUN-2017 07:31, Electronic atrial pacemaker has replaced Electronic ventricular pacemaker Confirmed by ANNA GAMBOA, DR. Daly ([id number]) on 08/17/2018 10:41:20 PM Referred By: BLANCA Confirmed By:DR. Malika CASTILLO MD
--- NOTE | 2018-08-18 03:33 | DIS ---
DATE OF ADMISSION: 08/17/2018 DATE OF DISCHARGE: 08/17/2018 ADMITTING DIAGNOSES: She was admitted. She was seen in the outpatient facility to undergo a transesophageal echocardiogram, this was a planned procedure. Due to a previously placed Watchman device for her atrial fibrillation, she was scheduled to undergo a transesophageal echocardiogram to rule out cecilio-device leak in order to stop taking her oral anticoagulation, the Eliquis. Her other diagnoses include history of atrial fibrillation, history of ablations. She has history of coronary artery disease. She has had history of [id number]-[id number]. She has history of cholecystomy, right knee surgery, and laparoscopy. She has had a pacemaker insertion. She has obesity and anxiety. DISCHARGE DIAGNOSES: She was admitted. She was seen in the outpatient facility to undergo a transesophageal echocardiogram, this is the planned procedure. Due to a previously placed Watchman device for her atrial fibrillation, she was scheduled to undergo transesophageal echocardiogram to rule out cecilio-device leak in order to stop taking her oral anticoagulation, the Eliquis. Her other diagnoses include history of atrial fibrillation, history of ablations. She has history of coronary artery disease. She has had history of [id number]. She has history of cholecystomy, right knee surgery, and laparoscopy. She has had a pacemaker insertion. She has obesity and anxiety. PROCEDURE PERFORMED: Include transesophageal echocardiogram. FOLLOWUP: Will be with dixonac operator as per the schedule. She will also see me back in the office in next 1 to 2 months. HOSPITAL COURSE: She was admitted to undergo an transesophageal echocardiogram, which was performed today without difficulty or complications. There does not appear to be any significant cecilio-device leak. There may be a very small leak on the lateral wall. The device seems to be protruding more into the left atrium, where the left atrial appendage appears to be occluded. She also was found to have moderate mitral valve regurgitation and [id number] tricuspid valve regurgitation and also mild aortic valve regurgitation with moderate valve sclerosis. Her left ventricular systolic function appears to be stable with ejection fraction of 50% to 55%. She remains stable to be discharged to home and we will see her back in the office. We will discuss her case with dixonac operator as to whether or not she can stop taking her Eliquis. Job ID: [id number]
--- NOTE | 2018-08-18 15:49 | ECHO ---
DATE OF PROCEDURE: 08/17/18 INDICATION FOR PROCEDURE: 62-year-old female who is status post a Watchman device due to atrial fibrillation. She was advised t o undergo a transesophageal cardiogram to determine whether or not there is a peridevice leak and see whether or not she could possibly stop taking her oral anticoagulation. She was taken to the Recovery area where she underwent short acting Propofol. The transesophageal pro be was easily passed down the distal esophagus and impressions are as follows: 1. Normal left ventricular systolic function. Ejection fracture estimated at 50-55%. 2. Moderate mitral valve regurgitation. 3. Moderate to severe tricuspid valve regurgitation. 4. No evidence of patent foramen ovale or atrial septal defect. 5. Mild aortic valve regurgitation. 6. Mild aortic valve sclerosis. 7. Normal functioning Watchman device and left atrial appendage. This does protrude into the left at rium. There is a very slight area around the device which may be considered a small leak. I do not se e anything inferior or retrograde around the device itself. We will ask electrophysiology to reevalu ate these images. It appears at this time that there is no significant peridevice leak. She tolerated the procedure well without difficulties or complications.
== END 2018-08-17 09:09 | disposition home or self-care (01) ==
LOC: CCL 06:12
PROVIDERS: ATTEND Internal Medicine Cardiovascular Disease
DX: Z48.812 Encounter for surgical aftercare following surgery on the circulatory system (principal); I48.91 Unspecified atrial fibrillation; Z79.82 Long term (current) use of aspirin; Z79.899 Other long term (current) drug therapy; Z95.818 Presence of other cardiac implants and grafts
CPT/HCPCS: 80048; 85025; 85610; 85730; 93005; 93010; 93312; J2001; J2704

== ENCOUNTER 2018-11-08 15:51 | Outpatient (CLI) | payer BC | END 2018-11-08 15:52 | disposition home or self-care (01) | LOC: BICMAMMO 15:51 | PROVIDERS: ATTEND Internal Medicine | DX: Z12.31 Encounter for screening mammogram for malignant neoplasm of breast (principal); R92.1 Mammographic calcification found on diagnostic imaging of breast; Z80.3 Family history of malignant neoplasm of breast | CPT/HCPCS: 77063; 77067 ==

== ENCOUNTER 2019-01-31 22:52 | Observation (INO) | payer BC ==
--- NOTE | 2019-01-31 23:12 | RAD ---
Frontal radiograph chest 01/31/2019 COMPARISON: 07/24/2017 HISTORY: Chest pain FINDINGS: Stable prominence of the cardiac silhouette. Mild pulmonary vascular congestion. Stable mid line sternotomy wires and transvenous pacing device. IMPRESSION: Mild pulmonary vascular congestion with no focal consolidation or alveolar edema.
[2019-01-31] MEDS ORDERED: Nitroglycerin 0.4 MG TAB 1 EACH ONE (23:27)
[2019-01-31 23:30] LABS: #Eosinphils 0.1 thou/uL (0.0-0.7); #Lymphocytes 2.2 thou/uL (1.20-3.40); #Monocytes 0.7 thou/uL (0.11-0.59); #Neutrophils 4.2 thou/uL (1.40-6.50); %Basophils 0.6 % (0.0-1.0); %Eosinophils 1.6 % (0.0-10.0); %Lymphocytes 30.3 % (21.0-51.0); %Monocytes 9.8 % (0.0-10.0); %Neutrophils 57.7 % (42.0-75.0); Hemoglobin 11.6 g/dL (12.0-16.0); Mean Corpuscular HGB CONC 32.8 g/dL (32.0-36.0); Mean Corpuscular Volume 88.3 fL (78.0-98.0); Mean Platelet Volume 7.5 fL (7.4-10.4); Platelet Count 198 thou/uL (130-400); Red Blood Cell (RBC) Count 4.01 mill/uL (4.20-5.40); White Blood Cell (WBC) Count 7.4 thou/uL (4.8-10.8)
[2019-01-31 23:52] LABS: ALT (SGPT) 19 U/L (8-55); AST (SGOT) 24 U/L (5-34); Albumin 4.5 g/dL (3.4-4.8); Alkaline Phosphatase 119 U/L (40-150); Anion Gap 17 mmol/L (10-20); BUN (Urea Nitrogen) 16 mg/dL (9.8-20.1); Bilirubin, Total 0.7 mg/dL (0.2-1.2); CK (CPK) 114 U/L (29-168); Calc. Creatinine Clearance 0 mL/min (70-130); Calcium 9.7 mg/dL (7.8-10.44); Carbon Dioxide 28 mmol/L (23-31); Chloride 99 mmol/L (98-107); Estimated GFR-MDRD 75; Globulin 3.8 g/dL (2.4-3.5); Glucose 94 mg/dL (80-115); Lipase 24 U/L (8-78); Potassium 3.7 mmol/L (3.5-5.1); Protein, Total 8.3 g/dL (6.0-8.3); Sodium 140 mmol/L (136-145)
[2019-02-01] MEDS ORDERED: Acetaminophen 325 MG TAB PO PRN (02:20)
[2019-02-01] MEDS ORDERED: Nitroglycerin 0.4 MG TAB 1 EACH SL PRN (02:21)
[2019-02-01 03:20] LABS: Troponin I Less than 0.010 ng/mL (< 0.028)
--- NOTE | 2019-02-01 03:55 | HP ---
CHIEF COMPLAINT: Chest pain. HISTORY OF PRESENT ILLNESS: The patient is a very pleasant 63-year-old female with past medical history of CAD, hypertension, who presents to the hospital with complaints of chest pain and the patient also has a history of atrial fibrillation, who comes to the hospital for chest pain. The patient stated that she was packing for her weekend getaway when she started having a burning sensation to her left side chest wall area radiating to her left shoulder. The patient stated she also felt very weak and started having shortness of breath on exertion. The patient denies any orthopnea or PND. She denies any recent shortness of breath on exertion except for today. The patient stated that she took nitroglycerin x1 and 4 baby aspirin and she brought herself to the ER. The patient in the ER was given another additional nitroglycerin and felt her burning sensation to her chest was relieved. PAST MEDICAL HISTORY: As of the followin. CAD. 2. Atrial fibrillation, status post ablation. She has Rnhvz-Fbwbtsjrm-Dpyqr syndrome. 3. Hypertension. 4. Hyperlipidemia. ALLERGIES: SHE HAS NONE. MEDICATIONS: As of the followin. The patient is on aspirin 81 mg daily. 2. She is on Eliquis 2.5 b.i.d. 3. Lasix 40 mg daily. 4. Sertraline 100 mg daily. 5. Simvastatin 40 mg at bedtime. I have asked the patient to bring an updated list since this is not the most updated list. PAST SURGICAL HISTORY: The patient has a history of multiple ablation. She had an open-heart to get an ablation for Xfaqz-Mcqtneapl-Vyaec syndrome. Also, she has had a cholecystectomy and she has had a right-sided breast biopsy, which was benign. She has also had a left knee arthroscopic repair and an ERCP that was done in [place]. SOCIAL HISTORY: She does not drink. She is a former smoker. No drug use. She is a full code. Lives with her . REVIEW OF SYSTEMS: All negative except for the ones mentioned above in the HPI. PHYSICAL EXAMINATION: VITAL SIGNS: Temperature of 98.0, heart rate of 80, blood pressure of 115/60, respirations are 18, and 98% on room air. GENERAL: She is awake, alert, and oriented x3. Does not appear in distress. HEENT: Normocephalic, atraumatic. No lymphadenopathy noted. Pupils are equal and reactive to light. CV: S1 and S2 present. No murmurs, rubs, or gallops. Regular rhythm. LUNGS: Clear to auscultation. No rhonchi or wheezes noted. ABDOMEN: Obese. Bowel sounds are present x2. No pain upon palpation. EXTREMITIES: Mild +1 pitting edema. She does have chronic venous stasis changes to the lower extremity. NEUROVASCULAR: No focal deficits noted. PSYCHIATRIC: The patient's mood is euthymic. No hallucinations or delusions noted. LABORATORY RESULTS: As of the following: WBCs of 7.4, hemoglobin of 11.6, hematocrit of 35.4, platelets of 198. Chemistry: Sodium of 140, potassium of 3.7, BUN of 16, creatinine 0.78. BNP of 137.5. Her EKG initially had some ST depressions in V4, V5, V6; however, on repeat after the nitroglycerin, they were back to her baseline. This was a little new compared to her prior EKG in 2017. The patient did have a positive D-dimer, for which she did have a CTA, the results are pending. ASSESSMENT AND PLAN: The patient is a very pleasant 63-year-old female, who presents to the hospital with complaints of chest pain. 1. Chest pain, most likely secondary to coronary artery disease. The patient has a history of small vessel disease. Her last echocardiogram was in 2018, which indicated an EF of 50% to 55% with moderate to severe tricuspid regurgitation. Her troponin x1 is negative. Given her changes in the EKG, which was subtle, however, significant and her EKG was back to the baseline, I will go ahead and consult Cardiology, may just require a stress test; however, given her risk factors, I will go ahead and consult Cardiology. Continue to monitor. Keep her n.p.o. just in case if the patient requires a stress test. 2. Atrial fibrillation. She has had a history of Wemmw-Twwsqxusq-Fbpsd syndrome, status post ablation. Currently, she is in sinus. We will continue to monitor. 3. Hypertension. We will continue her home medications. 4. Deep venous thrombosis prophylaxis. I believe she is already on Eliquis; if not, I will put her on some Lovenox. Job ID: [id number]
[2019-02-01 06:23] LABS: Troponin I Less than 0.010 ng/mL (< 0.028)
--- NOTE | 2019-02-01 08:59 | CT ---
PRELIMINARY REPORT/[facility]/EMERGENCY AFTER HOURS PROCEDURE: EXAM: CT Angiography Chest With Contrast EXAM DATE/TIME: 02/01/2019 12:30 AM CLINICAL HISTORY: 63 years old, female; Signs and symptoms; Dyspnea and shortness of breath; Prior surgery; Patient HX: Er1; , 63 y/o F presents to ED C/O sudden onset of cp that began this evening while PT was packing. She notes some associated dyspnea on exertion, that she began experiencing this afternoon prior to onset of cp. No n/v, diaphoresis, worsening of chronic edema, abd pain. Denies rec ent fever, cough, diarrhea. PT with h/o mi in 2003 with associated cardiac arrest, afib, wpw, x 4 car diac ablations TECHNIQUE: Imaging protocol: Axial computed tomographic angiography images of the chest with intravenous contras t using CT angiography protocol. 3D rendering: MIP reconstructed images were created and reviewed. COMPARISON: No relevant prior studies available. FINDINGS: Tubes, catheters and devices: Left atrial appendage occlusion device in place. Left subclavian transv enous pacemaker leads in the right cardiac chambers. Pulmonary arteries: No pulmonary emboli. Aorta: Normal. No aortic aneurysm. No aortic dissection. 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 Lungs: Normal. No consolidation. No masses. Pleural space: Normal. No pneumothorax. No pleural effusion. Heart: Mild four-chamber cardiac enlargement. Adrenals: 13 mm right adrenal adenoma. Stomach and bowel: Changes of prior gastric sleeve procedure. Lymph nodes: Unremarkable. No enlarged lymph nodes. Bones/joints: Multilevel thoracic spine degenerative changes. Subacute/healing fractures of the left lateral third through fifth ribs. Soft tissues: Unremarkable. IMPRESSION: No pulmonary emboli. Thank you for allowing us to participate in the care of your patient. Dictated and Authenticated by: Prosper Melissa MD 02/01/2019 1:10 AM Central Time ([place] & [place]) FINAL REPORT CTA ANGIO CHEST: I agree with the preliminary report provided. No acute central or segmental pulmonary embolus is mine dent. POS:
[2019-02-01] MEDS ORDERED: Loratadine 10 MG TAB PO SCH (09:00)
[2019-02-01] MEDS ORDERED: Aspirin Chewable 81 MG TAB PO SCH (09:00)
[2019-02-01] MEDS ORDERED: Apixaban 2.5 MG TAB PO SCH (09:00)
[2019-02-01 09:08] LABS: #Eosinphils 0.1 thou/uL (0.0-0.7); #Lymphocytes 1.1 thou/uL (1.20-3.40); #Monocytes 0.4 thou/uL (0.11-0.59); #Neutrophils 2.1 thou/uL (1.40-6.50); %Lymphocytes 30.4 % (21.0-51.0); %Monocytes 10.6 % (0.0-10.0); Hemoglobin 10.8 g/dL (12.0-16.0); Mean Corpuscular HGB CONC 32.9 g/dL (32.0-36.0); Mean Corpuscular Hemoglobin 29.4 pg (27.0-31.0); Mean Corpuscular Volume 89.3 fL (78.0-98.0); Mean Platelet Volume 7.5 fL (7.4-10.4); Platelet Count 158 thou/uL (130-400); Red Blood Cell (RBC) Count 3.68 mill/uL (4.20-5.40); White Blood Cell (WBC) Count 3.7 thou/uL (4.8-10.8)
[2019-02-01 09:29] LABS: Anion Gap 11 mmol/L (10-20); BUN (Urea Nitrogen) 14 mg/dL (9.8-20.1); Calc. Creatinine Clearance 185 mL/min (70-130); Calcium 9.7 mg/dL (7.8-10.44); Carbon Dioxide 33 mmol/L (23-31); Cardiac Risk 2.8 (Less than 4.5); Chloride 100 mmol/L (98-107); Cholesterol 207 mg/dl (< 200 Desired); Estimated GFR-MDRD 78; Glucose 95 mg/dL (80-115); HDL Cholesterol 73 mg/dL (>60 Neg Risk); LDL Cholesterol, Calculated 116 mg/dL; Magnesium 2.6 mg/dL (1.6-2.6); Potassium 3.8 mmol/L (3.5-5.1); Sodium 140 mmol/L (136-145); Triglycerides 91 mg/dL (Less than 150)
[2019-02-01] MEDS ORDERED: Regadenoson 0.4 MG/5 ML SYRINGE ONE (09:57)
[2019-02-01] MEDS ORDERED: ISOVUE-370 76%-LOCM 1 ML ONE (10:56)
--- NOTE | 2019-02-01 12:46 | NM ---
Stress only myocardial perfusion examination: 02/01/2019 HISTORY: Chest pain TECHNIQUE: SPECT imaging of the left ventricular myocardium obtained during stress following the admi nistration of 33 mCi technetium 99m labeled sestamibi FINDINGS: Left ventricular wall motion appears normal. No perfusion defect is noted on SPECT imaging. Left ventricular ejection fraction is estimated at 58%. EDV 164 mL. ESV 68 mL. IMPRESSION: Unremarkable stress only myocardial perfusion scan.
[2019-02-01 15:37] VITALS: BP 114/64; TEMP 98
[2019-02-01] MEDS ORDERED: Simvastatin 40 MG TAB PO SCH (21:00)
--- NOTE | 2019-02-01 21:43 | CON ---
DATE OF CONSULTATION: 02/01/2019 Please refer the notes already dictated by nurse practitioner, Oksana Wayne. INDICATION FOR CONSULTATION: A 63-year-old female with chest pain. HISTORY OF PRESENT ILLNESS: This very pleasant, but morbidly obese 63-year-old female has been seen in the past, has undergone cardiac catheterizations, has been found to have some coronary disease, has not been felt to be critical. She had a chest pain in the past and underwent a previous stress test, which did not show any evidence of ischemia. She was admitted again at this time complaining of chest pain, which started with fatigue and tightness in her chest. She took nitroglycerin and aspirin, was seen in the emergency room. Cardiac enzymes are negative. Her BNP was 137. Otherwise, laboratory data was relatively unremarkable. She has some mild anemia. She underwent a repeat stress test today, which shows no evidence of underlying ischemia. She did undergo a cardiac catheterization several years ago and was found to have mild coronary artery disease. I believe this last cardiac catheterization was in 2010. This was performed by Dr. Fritz. The findings showed that the left main had no flow-limiting disease. The left anterior descending artery had no significant flow-limiting disease in the proximal to the mid area. In the distal left anterior descending artery, there was diffuse disease present, but they have been no significant change from a cardiac catheterization done 1 year previous to that. She had a diagonal branch also with no evidence of flow-limiting disease. The circumflex had no flow-limiting disease. The right coronary was a dominant vessel with no flow-limiting disease and ejection fraction was within normal limits. Thus, the only vessel that was involved was the distal left anterior descending artery and she has remained stable since that time. She has undergone pacemaker insertion due to sick sinus syndrome. She last was seen in the hospital in July 2018 and underwent a transesophageal echocardiogram after having a Watchman device placed for her atrial fibrillation. The Watchman device appeared to be in good position. There was no evidence of cecilio-device leakage. She did have huqiapbu-zl-kelrjj and tricuspid valve regurgitation and some mild aortic valve regurgitation. Ejection fraction has remained stable. At this time, I believe she is stable for discharge since all of her studies have remained negative. Enzymes remain negative. Her EKG also did not show any evidence of significant ischemia. She had atrial pacing and ventricular sensing on the EKG. No significant ST-segment changes were noted. PHYSICAL EXAMINATION: GENERAL: Reveals a morbidly obese female. VITAL SIGNS: Her blood pressure is 101/62. She is afebrile. Heart rate is in the 70s, O2 saturation 93%, respiratory rate is 18. HEENT: Shows the head to be normocephalic and atraumatic. HEART: Carotid pulses are present. Her did not hear any bruits. CHEST: Clear to auscultation without rales, rhonchi, or wheezing. CARDIOVASCULAR: Reveals a regular rate and rhythm with no gross murmurs. ABDOMEN: Shows morbid obesity. EXTREMITIES: No clubbing, cyanosis, or edema. She does have some chronic discoloration of the lower extremities. Pedal pulses are present. NEUROLOGIC: She appears to be intact. SKIN: Warm and dry. IMPRESSION: 1. Morbidly obese female with chest pain, which does not appear to be cardiac in nature at this time. She does have history of single-vessel coronary artery disease in the distal left anterior descending artery, which is not amenable to intervention. We will continue to treat medically. 2. History of shortness of breath, most likely associated with her morbid obesity. 3. Obesity. She has been advised on multiple occasions to try to lose weight. She may need some dietary consultation, which I think has already been done in the past. She has had had a history of atrial fibrillation for which she has undergone ablation, this appears to be stable and she has a Watchman device placed and this appears to be stable. 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 She has had pacemaker insertion. On the last evaluation, this also had remained stable. 4. History of hypertension. This is also stable. 5. Hypercholesterolemia. She can continue her medications. PAST MEDICAL HISTORY: Please refer to the notes dictated by the nurse practitioner. SOCIAL HISTORY: Please refer to the notes dictated by the nurse practitioner. FAMILY HISTORY: Please refer to the notes dictated by the nurse practitioner. REVIEW OF SYSTEMS: Please refer to the notes dictated by the nurse practitioner. MEDICATIONS: Please refer to the notes dictated by the nurse practitioner. ALLERGIES: PLEASE REFER TO THE NOTES DICTATED BY THE NURSE PRACTITIONER. AT THIS TIME, OVERALL THE PATIENT APPEARS TO BE STABLE AND I BELIEVE SHE SHOULD BE ABLE TO BE DISCHARGED TO HOME. I WILL SEE HER BACK IN THE OFFICE IN THE NEXT 1 TO 2 MONTHS. Job ID: [id number]
--- NOTE | 2019-02-01 22:25 | CON ---
DATE OF CONSULTATION: PRIMARY CARE PHYSICIAN: Minna López MD PRIMARY PROVIDER ENROLLMENT SPECIALIST: Tiffanie Lott MD The patient's primary care doctor here is . REASON FOR CARDIOLOGY CONSULT: Chest pain. HISTORY OF PRESENT ILLNESS: Ms. Andrade is a 63-year-old female with a significant history of coronary artery disease with stent placement in 2003, chronic atrial fibrillation with multiple ablation and a Watchman device placement in January 2018, hypertension, hyperlipidemia, and Fcbef-Zfejjtqzy-Amgew syndrome, pacemaker placement in 2014 due to sick sinus syndrome. The patient had experience of burning-like sensation to the left upper chest, which radiated to the left shoulder, and the left shoulder blade for 45 minute, which really is similar to the symptom when she had a stent placement in 2003. She also had experience of shortness breath with mild exertion and weakness. She tried nitroglycerin sublingual with 4 tablets of baby aspirin; however, nothing improved her symptoms. Due to those reasons, the patient presented to the emergency department for further evaluation and treatment. After she received another one dose of nitroglycerin in the ER, her symptoms improved. This morning, she walked to the bathroom, she did not have any shortness of breath, dizziness, lightheadedness, chest pain or discomfort in her chest or any other cardiac complaints. The patient underwent total of 4 atrial fibrillation ablations, recently on February 14, 2018. She has history of coronary artery disease with stent placement to the right posterior descending artery in May 2004. She underwent another cardiac catheterization in January 2011, which showed diffuse LAD disease, patent RCA, and preserved LV function; Watchman device placement in January 2018. The YAMEL in June 2018 showed ; however, she has continued taking Eliquis 2.5 twice a day due to the left atrial size, which was recommended by the intelligence group supervisor. The most recent YAMEL was done in August 2018, which shows EF of 50% to 55%, moderately dilated left atrium, moderate mitral valve regurgitation, mild aortic valve regurgitation, and a ujexhfde-dn-xhyolf tricuspid regurgitation. She had a stress test in November 2016, which showed no ischemia. PAST MEDICAL HISTORY: Chronic atrial fibrillation with status post ablation x4, last one was on January 2018, coronary artery disease with status post PTCA in 2003, diffuse LAD disease in 2016, hypertension, hyperlipidemia, Watchman device placement in January 2018, status post Xylpo-Zmzlyfsab-Wpthc syndrome in the , anxiety, and obviously the patient had a gastric sleeve in 2014. PAST SURGICAL HISTORY: 1. Cholecystectomy. 2. Left knee surgery. 3. Ablation of WPW. 4. Pacemaker placement in 2014. 5. Gastric sleeve in 2014. 6. Multiple atrial fibrillation cardioversion and ablation. FAMILY HISTORY: The patient's father had history of coronary artery disease, hyperlipidemia, and due to CVA. The patient's mother had a history of hypertension and hyperlipidemia. The patient has 3 sisters, who has hyperlipidemia. SOCIAL HISTORY: She is . She has one child, who is living well. She quit smoking about 30 years ago. She drinks occasionally; however, lately she drinks wine or Rum and Coke 2 to 3 glasses daily. She used to swim until this December; however, she has not done for a little while due to the patient's right knee pain. She drink one cup of decaf coffee a day and a decaf soda a day. ALLERGIES: SHE HAS NO KNOWN DRUG ALLERGIES. MEDICATIONS: She is on; 1. Aspirin 81 mg once a day. 2. Eliquis 2.5 mg twice a day. 3. Lasix 40 mg once a day. 4. Sertraline 100 mg once a day. 5. Simvastatin 40 mg at night. 6. Cardizem daily. 7. Vitamin D. 8. Claritin. 9. Tylenol as needed. 10. Cleocin 300 mg p.o. 3 times a day. 11. Short-term therapy for cellulitis. REVIEW OF SYSTEMS: A 12-point review of systems negative unless otherwise mentioned in the HPI. PHYSICAL EXAMINATION: VITAL SIGNS: Blood pressure 101/62, temperature 97.8, pulse is 77, sinus rhythm, O2 saturation 93% to 95% on room air, respiratory rate 18. GENERAL: The patient is alert and oriented x4, not in acute distress. HEENT: Head is normocephalic and atraumatic. Eyes, extraocular muscle movement intact. ENT and mouth, oral mucosa moist without lesion. NECK: Supple. Normal range of motion. No JVD. RESPIRATORY: Clear to auscultate bilaterally. No wheezing, rales, or rhonchi noted. CARDIOVASCULAR: Regular rate and rhythm. Normal S1, S2. There is no S3 or S4. No significant murmur, hives, or thrills noted. EXTREMITIES: 2+ pulses in bilateral upper and lower extremities. No edema in lower extremities. ABDOMEN: Soft and nontender. No mass to palpate. Bowel sounds are present. SKIN: Warm and dry. No rash, erythema, or lesion noted. MUSCULOSKELETAL: The patient is able to move all extremities without difficulty. The patient denied claudication. PSYCHIATRIC: The patient's mood is appropriate. NEUROLOGIC: Alert and oriented x4, nonfocal. LABORATORY DATA: WBC 3.7, hemoglobin 10.8, hematocrit 32.9, platelets 158. D-dimer 1.1. Sodium 140, potassium 3.8, BUN 14, creatinine 0.75, AST 24, ALT 19. Troponin level is negative x3. BNP is 137.5, cholesterol 207, triglycerides 91, LDL 116, and HDL 73. TSH is 3.0074. CTA of the chest for elevated D-dimer shows no pulmonary emboli. ASSESSMENT AND PLAN: 1. Chest pain. The patient's symptom is very similar to the symptoms the patient had in 2004 prior to cardiac catheterization. The patient's last stress test was done in 2016 with no ischemia, with ejection fraction of 50%; although, patient's troponin level is negative and the patient's EKG has not showed any indication of myocardial infarction. Due to the similar symptom of chest pain, this time the patient will undergo a stress test today. If the patient's stress test is normal, the patient will be able to discharged hopefully today. 2. History of chronic atrial fibrillation with multiple cardioversions and ablations. She is in sinus rhythm at this moment with heart rate to 70s-80s. The patient had underwent a Watchman device placement in December 2017. She has continued taking Eliquis 2.5 mg twice a day due to the left atrial size. We would like to continue to monitor on the telemetry. 3. Coronary artery disease with stent placement and PTCA in 2003. She is on Zocor and aspirin 81 mg once a day. She is not on beta-nany or ALPHONSE inhibitor or ARB at this moment due to the hypotension. 4. Pacemaker placement due to sick sinus syndrome. The patient's pacemaker was interrogated in December 2018 by [facility], which showed normal function of the pacemaker. We would like to continue to monitor. 5. Hypertension. The patient's blood pressure is stable at this moment. We would like to continue to monitor. 6. Dyslipidemia. The patient is on statin. Thank you very much for allowing the Cardiology Service to participate in the care of this patient. We would like to follow along with the patient's care team and make further recommendations as appropriate. Job ID: [id number]
--- NOTE | 2019-02-02 11:27 | EKG ---
Test Reason : Blood Pressure : / mmHG Vent. Rate : 088 BPM Atrial Rate : 086 BPM P-R Int : 000 ms QRS Dur : 106 ms QT Int : 384 ms P-R-T Axes : 000 001 124 degrees QTc Int : 464 ms Undetermined rhythm probable sinus with long MA Abnormal ECG Confirmed by DR. Susan ORANTES (3) on 02/02/2019 11:26:43 AM Referred By: Confirmed By:DR. Susan ORANTES
--- NOTE | 2019-02-02 11:33 | EKG ---
Test Reason : Blood Pressure : / mmHG Vent. Rate : 072 BPM Atrial Rate : 277 BPM P-R Int : 000 ms QRS Dur : 104 ms QT Int : 434 ms P-R-T Axes : 000 005 095 degrees QTc Int : 475 ms Electronic atrial pacemaker Premature ventricular complexes Prolonged QT Abnormal ECG Confirmed by DR. Susan ORANTES (3) on 02/02/2019 11:32:52 AM Referred By: Confirmed By:DR. Susan ORANTES
== END 2019-02-01 16:19 | disposition home or self-care (01) ==
LOC: ERS 22:52 → 2SW 02-01 02:13
PROVIDERS: ADMIT Internal Medicine; ATTEND Internal Medicine
DX: R07.89 Other chest pain (principal); I25.10 Atherosclerotic heart disease of native coronary artery without angina pectoris; I45.6 Pre-excitation syndrome; I10 Essential (primary) hypertension; E78.5 Hyperlipidemia, unspecified; D64.9 Anemia, unspecified; I49.5 Sick sinus syndrome; E78.00 Pure hypercholesterolemia, unspecified; I48.2 Chronic atrial fibrillation; E66.01 Morbid (severe) obesity due to excess calories; Z68.43 Body mass index [BMI] 50.0-59.9, adult; Z87.891 Personal history of nicotine dependence; Z79.01 Long term (current) use of anticoagulants; Z79.82 Long term (current) use of aspirin; Z79.899 Other long term (current) drug therapy; Z95.1 Presence of aortocoronary bypass graft; Z95.5 Presence of coronary angioplasty implant and graft; Z98.84 Bariatric surgery status; Z98.890 Other specified postprocedural states
CPT/HCPCS: 36415; 71045; 71275; 78452; 80048; 80053; 80061; 82550; 83690; 83735; 83880; 84443; 84484; 85025; 85379; 93005; 93017; A9500; G0378; J2785; Q9966

== ENCOUNTER 2019-11-11 14:39 | Outpatient (CLI) | payer BC ==
--- NOTE | 2019-11-11 15:40 | MMO ---
Bilateral MAMMO Bilat Screen [facility]. CLINICAL HISTORY: Patient is 64 years old and is seen for screening. The patient has the following family history of breast cancer: aunt, at age 60. The patient has no personal history of cancer. The patient has a history of right Excisional Biopsy at age 46 - benign. VIEWS: The views performed were: bilateral craniocaudal with tomosynthesis and bilateral mediolateral oblique with tomosynthesis. FILMS COMPARED: The present examination has been compared to prior imaging studies performed at [facility] on 06/18/2015, 09/27/2016, 11/01/2017 and 11/08/2018. This study has been interpreted with the assistance of computer-aided detection. MAMMOGRAM FINDINGS: There are scattered fibroglandular densities. There are no suspicious masses, suspicious calcifications, or new areas of architectural distortion. IMPRESSION: THERE IS NO MAMMOGRAPHIC EVIDENCE OF MALIGNANCY. A ROUTINE FOLLOW-UP MAMMOGRAM IN 1 YEAR IS RECOMMENDED. THE RESULTS OF THIS EXAM WERE SENT TO THE PATIENT. ACR BI-RADS Category 1 - Negative MAMMOGRAPHY NOTE: 1. A negative mammogram report should not delay a biopsy if a dominant of clinically suspicious mass is present. 2. Approximately 10% to 15% of breast cancers are not detected by mammography. 3. Adenosis and dense breasts may obscure an underlying neoplasm. Reported by: Sahara YING Electonically Signed: [id number]
== END 2019-11-11 14:40 | disposition home or self-care (01) ==
LOC: BICMAMMO 14:39
PROVIDERS: ATTEND Internal Medicine
DX: Z12.31 Encounter for screening mammogram for malignant neoplasm of breast (principal); Z80.3 Family history of malignant neoplasm of breast; Z91.89 Other specified personal risk factors, not elsewhere classified
CPT/HCPCS: 77063; 77067

== ENCOUNTER 2020-02-18 14:18 | Outpatient (CLI) | payer BC ==
--- NOTE | 2020-02-18 15:35 | RAD ---
2 VIEW CHEST: Date: 02/18/2020 INDICATION: Dyspnea. COMPARISON: Portable chest film dated 01/31/2019. FINDINGS: Mild cardiomegaly with postop sternotomy changes appear stable. Dual lead pacemaker device is unchang ed with leads in appropriate position. Vascular markings upper normal, but stable. No focal infiltrat e. No evidence of effusion. Mild interstitial prominence could represent mild interstitial congestion . IMPRESSION: Cardiomegaly. Mild vascular engorgement and question mild interstitial congestion. No infiltrate or e ffusion. POS: AH
== END 2020-02-18 14:19 | disposition home or self-care (01) ==
LOC: BICRAD 14:18
PROVIDERS: ATTEND Internal Medicine Critical Care Medicine
DX: R06.00 Dyspnea, unspecified (principal); I51.7 Cardiomegaly; I70.90 Unspecified atherosclerosis
CPT/HCPCS: 71046

== ENCOUNTER 2021-08-02 13:48 | Emergency (ER) | payer BC | END 2021-08-02 14:25 | disposition home or self-care (01) | LOC: ERS 13:48 | DX: L76.32 Postprocedural hematoma of skin and subcutaneous tissue following other procedure (principal); I25.2 Old myocardial infarction; I10 Essential (primary) hypertension; E78.00 Pure hypercholesterolemia, unspecified | CPT/HCPCS: 99283 ==

== ENCOUNTER 2021-10-03 20:24 | Emergency (ER) | payer BC ==
[2021-10-03 21:17] LABS: #Eosinphils 0.1 thou/uL (0.0-0.7); #Lymphocytes 0.7 thou/uL (1.20-3.40); #Monocytes 0.8 thou/uL (0.11-0.59); %Basophils 0.2 % (0.0-1.0); %Lymphocytes 7.7 % (21.0-51.0); %Monocytes 9.1 % (0.0-10.0); %Neutrophils 82.1 % (42.0-75.0); Hemoglobin 11.8 g/dL (12.0-16.0); Mean Corpuscular HGB CONC 31.6 g/dL (32.0-36.0); Mean Corpuscular Hemoglobin 28.8 pg (27.0-31.0); Mean Corpuscular Volume 91.4 fL (78.0-98.0); Mean Platelet Volume 7.6 fL (7.4-10.4); Platelet Count 157 thou/uL (130-400); RBC Distribution Width 12.4 % (11.5-14.5); White Blood Cell (WBC) Count 8.6 thou/uL (4.8-10.8)
[2021-10-03 21:42] LABS: ALT (SGPT) 22 U/L (8-55); AST (SGOT) 26 U/L (5-34); Albumin 4.1 g/dL (3.4-4.8); Alkaline Phosphatase 108 U/L (40-110); Anion Gap 16 mmol/L (10-20); BUN (Urea Nitrogen) 14 mg/dL (9.8-20.1); Bilirubin, Total 0.9 mg/dL (0.2-1.2); Calc. Creatinine Clearance 0 mL/min (70-130); Calcium 9.6 mg/dL (7.8-10.44); Carbon Dioxide 24 mmol/L (23-31); Chloride 104 mmol/L (98-107); Globulin 3.7 g/dL (2.4-3.5); Glucose 112 mg/dL (80-115); Potassium 3.5 mmol/L (3.5-5.1); Protein, Total 7.8 g/dL (5.8-8.1); Sodium 140 mmol/L (136-145)
[2021-10-03] MEDS ORDERED: Potassium Chloride 20 MEQ TAB ONE (22:47)
[2021-10-03] MEDS ORDERED: Furosemide 20 MG/2 ML VIAL ONE ×2 (23:00→23:01)
[2021-10-04 00:52] LABS: SARS-CoV-2 NAA Rapid Test Not Detected (NotDetected)
== END 2021-10-04 01:00 | disposition home or self-care (01) ==
LOC: ERS 20:24
DX: R06.00 Dyspnea, unspecified (principal); I50.9 Heart failure, unspecified; E78.5 Hyperlipidemia, unspecified; I25.2 Old myocardial infarction; E78.00 Pure hypercholesterolemia, unspecified; I48.91 Unspecified atrial fibrillation; Z20.822 Contact with and (suspected) exposure to COVID-19; Z79.01 Long term (current) use of anticoagulants; Z79.82 Long term (current) use of aspirin; Z79.899 Other long term (current) drug therapy
CPT/HCPCS: 36415; 71045; 80053; 83880; 84484; 85025; 85379; 93005; 96374; J1940; U0002

== ENCOUNTER 2022-06-13 11:00 | Outpatient (CLI) | payer MEDICARE | END 2022-06-13 11:01 | disposition home or self-care (01) | LOC: BICMAMMO 11:00 | PROVIDERS: ATTEND Internal Medicine | DX: Z12.31 Encounter for screening mammogram for malignant neoplasm of breast (principal); Z91.89 Other specified personal risk factors, not elsewhere classified | CPT/HCPCS: 77063; 77067 ==

== ENCOUNTER 2023-08-07 09:28 | Emergency (ER) | payer MEDICARE ==
[2023-08-07 10:18] LABS: #Eosinphils 0.1 thou/uL (0.0-0.7); #Monocytes 0.4 thou/uL (0.11-0.59); #Neutrophils 2.6 thou/uL (1.40-6.50); %Basophils 0.7 % (0.0-1.0); %Eosinophils 2.5 % (0.0-10.0); %Monocytes 9.9 % (0.0-10.0); %Neutrophils 60.4 % (42.0-75.0); Hematocrit 36.1 % (36.0-47.0); Mean Corpuscular HGB CONC 30.5 g/dL (32.0-36.0); Mean Corpuscular Hemoglobin 25.9 pg (27.0-31.0); Mean Corpuscular Volume 84.9 fl (78.0-98.0); Mean Platelet Volume 9.7 fL (7.4-10.4); Platelet Count 202 10x3/uL (130-400); RBC Distribution Width 15.4 % (11.5-14.5); Red Blood Cell (RBC) Count 4.25 mill/uL (4.20-5.40); White Blood Cell (WBC) Count 4.4 10x3/uL (4.8-10.8)
[2023-08-07 10:47] LABS: Troponin I Less than 0.010 ng/mL (< 0.028)
[2023-08-07 10:50] LABS: ALT (SGPT) 13 U/L (8-55); AST (SGOT) 20 U/L (5-34); Albumin 4.1 g/dL (3.4-4.8); Alkaline Phosphatase 98 U/L (40-110); Anion Gap 14 mmol/L (10-20); BUN (Urea Nitrogen) 16 mg/dL (9.8-20.1); Bilirubin, Total 0.8 mg/dL (0.2-1.2); Calc. Creatinine Clearance 0 mL/min (70-130); Calcium 9.4 mg/dL (7.8-10.44); Carbon Dioxide 27 mmol/L (23-31); Estimated GFR 84; Globulin 3.7 g/dL (2.4-3.5); Glucose 102 mg/dL (80-115); Lipase 39 U/L (8-78); Magnesium 2.3 mg/dL (1.6-2.6); Potassium 3.9 mmol/L (3.5-5.1); Protein, Total 7.8 g/dL (5.8-8.1)
[2023-08-07 10:59] LABS: Chloride 103 mmol/L (98-107); Sodium 140 mmol/L (136-145)
[2023-08-07] MEDS ORDERED: Aspirin Chewable 81 MG TAB ONE (11:27)
[2023-08-07 12:30] LABS: Troponin I 0.012 ng/mL (< 0.028)
== END 2023-08-07 13:55 | disposition home or self-care (01) ==
LOC: ERS 09:28
DX: R07.81 Pleurodynia (principal); E78.00 Pure hypercholesterolemia, unspecified; I10 Essential (primary) hypertension; Z79.899 Other long term (current) drug therapy; Z79.82 Long term (current) use of aspirin
CPT/HCPCS: 36415; 71045; 80053; 83690; 83735; 83880; 84484; 85025; 93005

== ENCOUNTER 2023-08-31 11:29 | Outpatient (CLI) | payer MEDICARE | END 2023-08-31 11:30 | disposition home or self-care (01) | LOC: BICMAMMO 11:29 | PROVIDERS: ATTEND Internal Medicine | DX: Z12.31 Encounter for screening mammogram for malignant neoplasm of breast (principal); N64.89 Other specified disorders of breast; Z80.3 Family history of malignant neoplasm of breast; Z91.89 Other specified personal risk factors, not elsewhere classified | CPT/HCPCS: 77063; 77067 ==

== ENCOUNTER 2023-09-19 09:13 | Outpatient (CLI) | payer MEDICARE | END 2023-09-19 09:14 | disposition home or self-care (01) | LOC: BICMAMMO 09:13 | PROVIDERS: ATTEND Internal Medicine | DX: N64.89 Other specified disorders of breast (principal) | CPT/HCPCS: 76642; 77065; G0279 ==

== ENCOUNTER 2024-09-02 12:52 | Outpatient (CLI) | payer MEDICARE | END 2024-09-02 12:53 | disposition home or self-care (01) | LOC: BICMAMMO 12:52 | PROVIDERS: ATTEND Internal Medicine | DX: Z12.31 Encounter for screening mammogram for malignant neoplasm of breast (principal); Z80.3 Family history of malignant neoplasm of breast; Z91.89 Other specified personal risk factors, not elsewhere classified | CPT/HCPCS: 77063; 77067 ==